=== PATIENT | male | born 1990 | race Caucasian/White ===

== ENCOUNTER 2024-01-28 11:50 | Emergency (ER) | payer BC ==
[~2024-01-28] VITALS: Ht 180.3 cm; Wt 113.5 kg
[~2024-01-28 11:50] MED LIST: NO MEDICATIONS
[2024-01-28 12:19] VITALS: TEMP 99
[2024-01-28 12:38] LABS: BASOPHILS # (AUTO) 0.1 X10'3 (0-0.2); BASOPHILS % (AUTO) 0.8 % (0-1); EOSINOPHILS % (AUTO) 0.3 % (0-6); HEMOGLOBIN 12.7 g/dl (14.0-17.9); LYMPHOCYTES # (AUTO) 0.7 X10'3 (1.1-4.8); LYMPHOCYTES % (AUTO) 10.9 % (21-51); MEAN CORPUSCULAR HEMOGLOBIN 30.4 PG (27.0-31.0); MEAN CORPUSCULAR HGB CONC 34.3 g/dL (33.0-36.5); MEAN CORPUSCULAR VOLUME 88.6 FL (78-98); MEAN PLATELET VOLUME 9.5 FL (7.4-10.4); MONOCYTES # (AUTO) 0.4 X10'3 (0-0.9); MONOCYTES % (AUTO) 7.1 % (2-12); NEUTROPHILS % (AUTO) 80.9 % (42-75); PLATELET COUNT 76 X10'3 (140-440); RED BLOOD COUNT 4.18 X10'6 (4.70-6.10); RED CELL DISTRIBUTION WIDTH 12.7 % (11.5-14.5); WHITE BLOOD COUNT 6.2 X10'3 (4.5-11.0)
[2024-01-28 12:54] LABS: ALANINE AMINOTRANSFERASE 74 U/L (12-78); ALBUMIN 4.3 G/DL (3.4-5.0); ALBUMIN/GLOBULIN RATIO 1.1 (1.1-1.5); ALKALINE PHOSPHATASE 128 IU/L (46-116); ANION GAP 22 (8-16); ASPARTATE AMINO TRANSFERASE 192 U/L (10-37); BILIRUBIN,TOTAL 4.1 MG/DL (0.1-1.0); BLOOD UREA NITROGEN 15 MG/DL (7-18); CALCIUM 9.4 MG/DL (8.5-10.1); CHLORIDE 94 MMOL/L (99-107); GLUCOSE 79 MG/DL (70-104); LIPASE 51 U/L (16-77); SODIUM 139 MMOL/L (135-145); TOTAL CARBON DIOXIDE 23.5 MMOL/L (24-32); TOTAL PROTEIN 8.1 G/DL (6.4-8.2); eCRCL 111 ML/MIN; eGFR 86 ML/MIN
[2024-01-28 13:18] LABS: MAGNESIUM 1.9 MG/DL (1.5-2.4)
[2024-01-28] MEDS: ondansetron/PF 4mg/2ml inj IV ONE (13:24)
[2024-01-28] MEDS ORDERED: morphine 2 MG/ML inj. syringe IV PRN (13:55)
[2024-01-28] MEDS: normal saline 1000ML IV soln IVB ONE (14:31)
[2024-01-28] MEDS ORDERED: PANT20TA2 PO (14:38)
[2024-01-28] MEDS ORDERED: CHLO25CA10 PO (14:38)
[2024-01-28] MEDS: pantoprazole 40 MG vial IV ONE (14:41)
[2024-01-28] MEDS: diazepam inj 5 MG/ML inj. IV ONE (14:41)
[2024-01-28] MEDS: magnesium 2GM in 50ml NS 50 ML IV ONE (14:45)
[2024-01-28] MEDS: potassium Cl 20mEq in D5-NS 1,000 ML IV SCH (14:45)
[2024-01-28] MEDS: haloperidol lactate 5mg/ml inj IM ONE (15:14)
[2024-01-28] MEDS: ringers solution, lacted 1,000 ML IV ONE (15:14)
[2024-01-28 17:08] VITALS: BP 144/84; PULSE 101; RESP 18; O2SAT 95
[2024-01-28] MEDS: chlordiazePOXIDE 25mg capsule PO ONE (17:20)
== END 2024-01-28 17:35 | disposition home or self-care (01) ==
LOC: ER 11:51
DX: E87.6 Hypokalemia (principal); K29.20 Alcoholic gastritis without bleeding; F10.10 Alcohol abuse, uncomplicated; R10.9 Unspecified abdominal pain; R11.10 Vomiting, unspecified; Z88.8 Allergy status to other drugs, medicaments and biological substances; Z79.899 Other long term (current) drug therapy; Y90.9 Presence of alcohol in blood, level not specified
CPT/HCPCS: 36415; 80053; 80320; 83690; 83735; 85025; 93005; 96365; 96366; 96368; 96372; 96375; 99284; C9113; J1630; J2405; J3360; J3475; J3480; J7030; J7120

== ENCOUNTER 2024-10-15 12:34 | Inpatient (IN) | payer OTHER ==
[~2024-10-15] VITALS: Ht 182.9 cm; Wt 117.5 kg
[~2024-10-15 12:34] MED LIST changes: +FOLI1TAB27 PO; +LACT-237 PO; +LACT10SO78 PO; +MIDO2.5T PO; +MULT-25 PO; -NO MEDICATIONS; +PANT40TA54 PO; +PHYT5TAB30 PO; +PRED10TA PO; +PROP10TA10 PO; +RIFA550T PO; +SERT-432 PO; +URSO300C2 PO; +thiamine tablet PO
[2024-10-15] MEDS: octreotide inj. 500 MCG in normal saline 100ml IV soln 97.5 ML IV SCH (14:03)
[2024-10-15] MEDS: octreotide 100mcg/1 ml ampule IV ONE (14:03)
[2024-10-15] MEDS: pantoprazole 40 MG vial IV STA (14:03)
[2024-10-15 14:09] LABS: BASOPHILS % (AUTO) 0.1 % (0-1); EOSINOPHILS # (AUTO) 0.1 X10'3 (0-0.9); EOSINOPHILS % (AUTO) 0.8 % (0-6); HEMATOCRIT 22.5 % (42.0-52.0); HEMOGLOBIN 7.4 g/dl (14.0-17.9); LYMPHOCYTES # (AUTO) 0.3 X10'3 (1.1-4.8); LYMPHOCYTES % (AUTO) 2.6 % (21-51); MEAN CORPUSCULAR HEMOGLOBIN 32.2 PG (27.0-31.0); MEAN CORPUSCULAR HGB CONC 33.1 g/dL (33.0-36.5); MEAN CORPUSCULAR VOLUME 97.3 FL (78-98); MONOCYTES # (AUTO) 2.1 X10'3 (0-0.9); MONOCYTES % (AUTO) 15.7 % (2-12); NEUTROPHILS # (AUTO) 10.7 X10'3 (1.8-7.7); NEUTROPHILS % (AUTO) 80.8 % (42-75); PLATELET COUNT 88 X10'3 (140-440); RED BLOOD COUNT 2.31 X10'6 (4.70-6.10); RED CELL DISTRIBUTION WIDTH 23.9 % (11.5-14.5); WHITE BLOOD COUNT 13.2 X10'3 (4.5-11.0)
[2024-10-15 14:13] LABS: AMMONIA < 10 UMOL/L (11-32)
[2024-10-15 14:14] LABS: LACTIC SEPSIS 2.2 MMOL/L (0.4-2.0)
[2024-10-15 14:17] LABS: INR 2.1 INR; PROTHROMBIN TIME 20.5 SECONDS (9.0-12.0)
[2024-10-15 14:25] LABS: ALANINE AMINOTRANSFERASE 111 U/L (12-78); ALBUMIN 2.8 G/DL (3.4-5.0); ALKALINE PHOSPHATASE 134 IU/L (46-116); ANION GAP 11 (8-16); ASPARTATE AMINO TRANSFERASE 100 U/L (10-37); BILIRUBIN,TOTAL 11.2 MG/DL (0.1-1.0); BLOOD UREA NITROGEN 25 MG/DL (7-18); BUN/CREATININE RATIO 18.1 (10.0-20.0); CALCIUM 8.4 MG/DL (8.5-10.1); CHLORIDE 108 MMOL/L (99-107); CREATININE 1.38 MG/DL (0.60-1.10); GLUCOSE 125 MG/DL (70-104); POTASSIUM 3.7 MMOL/L (3.5-5.1); SODIUM 141 MMOL/L (135-145); TOTAL CARBON DIOXIDE 21.7 MMOL/L (24-32); eCRCL 80 ML/MIN; eGFR 59 ML/MIN
[2024-10-15 14:31] LABS: ETHANOL < 10 MG/DL (<10); LIPASE 83 U/L (16-77); MAGNESIUM 1.5 MG/DL (1.5-2.4); PRO BRAIN NATRIURETIC PEPTIDE 296 PG/ML (0-125)
[2024-10-15 14:32] LABS: ALBUMIN/GLOBULIN RATIO 1.3 (1.1-1.5)
[2024-10-15 15:26] LABS: TOTAL CELLS COUNTED 100
[2024-10-15 15:27] LABS: BURR CELLS 3+; SCHISTOCYTES FEW
[2024-10-15 15:29] LABS: ANISOCYTOSIS 3+; PLATELET ESTIMATE DECREASED
[2024-10-15] MEDS: CefTRIAXone 2gm/D5W 50ml BAG 50 ML IV ONE (16:55)
[2024-10-15] MEDS ORDERED: magnesium sulf-water 2g/50mL 50 ML IV PRN (17:10)
[2024-10-15] MEDS ORDERED: ondansetron/PF 4mg/2ml inj IV PRN (17:10)
[2024-10-15] MEDS ORDERED: magnesium hydroxide 30ml (MOM) UD suspension PO PRN (17:10)
[2024-10-15] MEDS ORDERED: potassium Cl 20 mEq SR tablet PO PRN ×2 (17:10)
[2024-10-15] MEDS ORDERED: acetaminophen 325mg tablet PO PRN (17:10)
[2024-10-15] MEDS ORDERED: potassium Cl 40MEQ/1/2NS 520ml 520 ML IV PRN (17:10)
[2024-10-15] MEDS ORDERED: magnesium sulf-water 4G/100mL 100 ML IV PRN (17:10)
[2024-10-15] MEDS ORDERED: mag hydrox/Alum hydrox/simeth 30ml oral suspension PO PRN (17:10)
[2024-10-15] MEDS ORDERED: cloNIDine 0.1 mg tablet PO PRN (17:55)
[2024-10-15] MEDS ORDERED: LORazepam 2 mg/ml vial IV PRN (17:55)
[2024-10-15] MEDS: phytonadione inj. 3 MG in normal saline 100ml IV soln 100 ML IV ONE (18:34)
[2024-10-15] MEDS: pantoprazole 40MG/NS 100ML BAG 100 ML IV SCH (18:38)
[2024-10-15] MEDS: normal saline 1000ml 1,000 ML IV SCH (18:38)
[2024-10-15 19:24] LABS: MEAN CORPUSCULAR HGB CONC 33.9 g/dL (33.0-36.5); MEAN CORPUSCULAR VOLUME 97.4 FL (78-98); MEAN PLATELET VOLUME 11.2 FL (7.4-10.4); RED BLOOD COUNT 1.94 X10'6 (4.70-6.10); RED CELL DISTRIBUTION WIDTH 23.5 % (11.5-14.5); WHITE BLOOD COUNT 6.8 X10'3 (4.5-11.0)
[2024-10-15 19:28] LABS: HEMATOCRIT 18.9 % (42.0-52.0); HEMOGLOBIN 6.4 g/dl (14.0-17.9); PLATELET COUNT 48 X10'3 (140-440)
[2024-10-15] MEDS: K and/or MAG REPLACEMENT MC SCH (20:00)
[2024-10-15] MEDS: docusate sod 100mg capsule PO SCH (20:00)
[2024-10-15 21:00] VITALS: BP 113/62; PULSE 84; RESP 14; RESP 16; TEMP 97.8; O2SAT 96; O2SAT 97
[2024-10-15] MEDS: thiamine 100mg/ml 2ml inj. IV SCH (21:00)
[2024-10-15 21:01] VITALS: RESP 16; O2SAT 96
[2024-10-15 22:00] VITALS: BP 109/45; PULSE 75; RESP 16; TEMP 97.9; O2SAT 98
[2024-10-15 22:07] VITALS: BP 109/51; PULSE 77; RESP 18; TEMP 97.6
[2024-10-15 22:29] VITALS: BP 111/49; PULSE 75; RESP 15; RESP 17; TEMP 98.4; TEMP 98.5
[2024-10-15] MEDS: LORazepam 1 MG tablet PO PRN (22:54)
[2024-10-15 23:29] VITALS: BP 109/45; PULSE 75; RESP 16; TEMP 97.9
[2024-10-16] VITALS (17 sets, daily range): BP systolic 99–123; BP diastolic 53–66; PULSE 69–76; RESP 12–16; TEMP 97.3–98.5; O2SAT 91–97
[2024-10-16 07:42] LABS: BASOPHILS % (AUTO) 0.6 % (0-1); EOSINOPHILS # (AUTO) 0.4 X10'3 (0-0.9); EOSINOPHILS % (AUTO) 5.6 % (0-6); HEMATOCRIT 22.8 % (42.0-52.0); HEMOGLOBIN 7.5 g/dl (14.0-17.9); LYMPHOCYTES % (AUTO) 15.3 % (21-51); MEAN CORPUSCULAR HEMOGLOBIN 32.2 PG (27.0-31.0); MEAN CORPUSCULAR HGB CONC 32.7 g/dL (33.0-36.5); MEAN CORPUSCULAR VOLUME 98.3 FL (78-98); MEAN PLATELET VOLUME 10.3 FL (7.4-10.4); MONOCYTES # (AUTO) 0.4 X10'3 (0-0.9); MONOCYTES % (AUTO) 6.6 % (2-12); NEUTROPHILS # (AUTO) 4.8 X10'3 (1.8-7.7); NEUTROPHILS % (AUTO) 71.9 % (42-75); PLATELET COUNT 61 X10'3 (140-440); RED BLOOD COUNT 2.32 X10'6 (4.70-6.10); RED CELL DISTRIBUTION WIDTH 24.2 % (11.5-14.5); WHITE BLOOD COUNT 6.6 X10'3 (4.5-11.0)
[2024-10-16 07:48] LABS: ALANINE AMINOTRANSFERASE 104 U/L (12-78); ALBUMIN 2.4 G/DL (3.4-5.0); ALBUMIN/GLOBULIN RATIO 1.1 (1.1-1.5); ALKALINE PHOSPHATASE 116 IU/L (46-116); ANION GAP 12 (8-16); ASPARTATE AMINO TRANSFERASE 136 U/L (10-37); BLOOD UREA NITROGEN 23 MG/DL (7-18); BUN/CREATININE RATIO 19.7 (10.0-20.0); CALCIUM 7.6 MG/DL (8.5-10.1); CHLORIDE 111 MMOL/L (99-107); CREATININE 1.17 MG/DL (0.60-1.10); GLUCOSE 93 MG/DL (70-104); MAGNESIUM 1.3 MG/DL (1.5-2.4); POTASSIUM 3.8 MMOL/L (3.5-5.1); SODIUM 142 MMOL/L (135-145); TOTAL CARBON DIOXIDE 19.5 MMOL/L (24-32); TOTAL PROTEIN 4.5 G/DL (6.4-8.2); eCRCL 97 ML/MIN; eGFR 71 ML/MIN
[2024-10-16] MEDS: multivitamins, therapeutics tablet PO SCH (08:33)
[2024-10-16] MEDS: prednisone 10mg tablet PO SCH (08:34)
[2024-10-16] MEDS: folic acid 1mg/0.2ml inj IV SCH (08:35)
[2024-10-16] MEDS ORDERED: fentaNYL/PF 50MCG/1 ML 2ML syringe ONE (14:42)
[2024-10-16] MEDS ORDERED: LIDOcaine 2% Viscous 15ml cup ONE (14:43)
[2024-10-16] MEDS ORDERED: epiNEPHrine 0.1mg/ml 10ml syringe ONE (14:43)
[2024-10-16] MEDS ORDERED: MIDAZolam 1 MG/ML 5ML VIAL ONE (14:43)
[2024-10-16] MEDS ORDERED: simethicone 40mg/0.6ml oral drops 30ml ONE (15:20)
[2024-10-16 18:35] LABS: HEMATOCRIT 22.9 % (42.0-52.0); HEMOGLOBIN 7.7 g/dl (14.0-17.9); MEAN CORPUSCULAR HEMOGLOBIN 32.3 PG (27.0-31.0); MEAN CORPUSCULAR HGB CONC 33.8 g/dL (33.0-36.5); MEAN CORPUSCULAR VOLUME 95.6 FL (78-98); MEAN PLATELET VOLUME 10.7 FL (7.4-10.4); PLATELET COUNT 70 X10'3 (140-440); RED BLOOD COUNT 2.39 X10'6 (4.70-6.10); RED CELL DISTRIBUTION WIDTH 23.5 % (11.5-14.5); WHITE BLOOD COUNT 7.4 X10'3 (4.5-11.0)
[2024-10-16] MEDS: CefTRIAXone/D5W-Rocephin 1gm 50 ML IV SCH (19:33)
[2024-10-16] MEDS: magnesium Cl slow-release 64mg tablet PO PRN (19:39)
[2024-10-17] VITALS (8 sets, daily range): BP systolic 108–141; BP diastolic 49–81; PULSE 71–89; RESP 12–21; TEMP 97.6–98.3; O2SAT 93–97
[2024-10-17 06:49] LABS: ALANINE AMINOTRANSFERASE 104 U/L (12-78); ALBUMIN 2.3 G/DL (3.4-5.0); ALKALINE PHOSPHATASE 105 IU/L (46-116); ANION GAP 8 (8-16); ASPARTATE AMINO TRANSFERASE 115 U/L (10-37); BILIRUBIN,TOTAL 11.6 MG/DL (0.1-1.0); BLOOD UREA NITROGEN 25 MG/DL (7-18); BUN/CREATININE RATIO 22.9 (10.0-20.0); CALCIUM 8.2 MG/DL (8.5-10.1); CHLORIDE 112 MMOL/L (99-107); CREATININE 1.09 MG/DL (0.60-1.10); GLUCOSE 118 MG/DL (70-104); MAGNESIUM 1.5 MG/DL (1.5-2.4); SODIUM 143 MMOL/L (135-145); TOTAL CARBON DIOXIDE 22.7 MMOL/L (24-32); eCRCL 104 ML/MIN; eGFR 77 ML/MIN
[2024-10-17 06:50] LABS: ALBUMIN/GLOBULIN RATIO 1.2 (1.1-1.5); POTASSIUM 4.3 MMOL/L (3.5-5.1); TOTAL PROTEIN 4.3 G/DL (6.4-8.2)
[2024-10-17 07:19] LABS: BASOPHILS % (AUTO) 0.3 % (0-1); EOSINOPHILS % (AUTO) 0.4 % (0-6); HEMOGLOBIN 7.2 g/dl (14.0-17.9); LYMPHOCYTES # (AUTO) 0.5 X10'3 (1.1-4.8); LYMPHOCYTES % (AUTO) 6.5 % (21-51); MEAN CORPUSCULAR HEMOGLOBIN 32.3 PG (27.0-31.0); MEAN CORPUSCULAR HGB CONC 34.1 g/dL (33.0-36.5); MEAN CORPUSCULAR VOLUME 94.9 FL (78-98); MEAN PLATELET VOLUME 10.6 FL (7.4-10.4); MONOCYTES # (AUTO) 0.5 X10'3 (0-0.9); MONOCYTES % (AUTO) 6.6 % (2-12); NEUTROPHILS # (AUTO) 6.8 X10'3 (1.8-7.7); NEUTROPHILS % (AUTO) 86.2 % (42-75); PLATELET COUNT 68 X10'3 (140-440); RED BLOOD COUNT 2.24 X10'6 (4.70-6.10); RED CELL DISTRIBUTION WIDTH 23.6 % (11.5-14.5); WHITE BLOOD COUNT 7.9 X10'3 (4.5-11.0)
[2024-10-17 07:46] LABS: HEMATOCRIT 21.2 % (42.0-52.0)
[2024-10-17 09:44] LABS: INR 2.1 INR; PROTHROMBIN TIME 21.1 SECONDS (9.0-12.0)
[2024-10-17 17:27] LABS: BASOPHILS % (AUTO) 0.1 % (0-1); EOSINOPHILS % (AUTO) 0.1 % (0-6); HEMATOCRIT 24.6 % (42.0-52.0); HEMOGLOBIN 8.5 g/dl (14.0-17.9); LYMPHOCYTES # (AUTO) 0.3 X10'3 (1.1-4.8); LYMPHOCYTES % (AUTO) 3.1 % (21-51); MEAN CORPUSCULAR HEMOGLOBIN 32.1 PG (27.0-31.0); MEAN CORPUSCULAR HGB CONC 34.4 g/dL (33.0-36.5); MEAN CORPUSCULAR VOLUME 93.4 FL (78-98); MEAN PLATELET VOLUME 9.9 FL (7.4-10.4); MONOCYTES # (AUTO) 0.5 X10'3 (0-0.9); MONOCYTES % (AUTO) 4.5 % (2-12); NEUTROPHILS % (AUTO) 92.2 % (42-75); PLATELET COUNT 74 X10'3 (140-440); RED BLOOD COUNT 2.64 X10'6 (4.70-6.10); WHITE BLOOD COUNT 10.8 X10'3 (4.5-11.0)
[2024-10-18] VITALS (11 sets, daily range): BP systolic 114–128; BP diastolic 60–73; PULSE 74–95; RESP 10–19; TEMP 97.4–97.9; O2SAT 95–97
[2024-10-18] MEDS: morphine 2 MG/ML inj. syringe IV PRN ×2 (01:50→10:55)
[2024-10-18 06:44] LABS: BASOPHILS % (AUTO) 0.2 % (0-1); EOSINOPHILS # (AUTO) 0.1 X10'3 (0-0.9); EOSINOPHILS % (AUTO) 1.3 % (0-6); HEMOGLOBIN 7.5 g/dl (14.0-17.9); LYMPHOCYTES # (AUTO) 0.7 X10'3 (1.1-4.8); LYMPHOCYTES % (AUTO) 8.7 % (21-51); MEAN CORPUSCULAR HEMOGLOBIN 31.9 PG (27.0-31.0); MEAN CORPUSCULAR HGB CONC 34.4 g/dL (33.0-36.5); MEAN CORPUSCULAR VOLUME 92.8 FL (78-98); MEAN PLATELET VOLUME 10.2 FL (7.4-10.4); MONOCYTES # (AUTO) 0.5 X10'3 (0-0.9); MONOCYTES % (AUTO) 6.1 % (2-12); NEUTROPHILS # (AUTO) 6.3 X10'3 (1.8-7.7); NEUTROPHILS % (AUTO) 83.7 % (42-75); PLATELET COUNT 59 X10'3 (140-440); RED BLOOD COUNT 2.34 X10'6 (4.70-6.10); RED CELL DISTRIBUTION WIDTH 23.6 % (11.5-14.5); WHITE BLOOD COUNT 7.5 X10'3 (4.5-11.0)
[2024-10-18 07:13] LABS: ALANINE AMINOTRANSFERASE 85 U/L (12-78); ALBUMIN 2.2 G/DL (3.4-5.0); ALKALINE PHOSPHATASE 115 IU/L (46-116); ANION GAP 7 (8-16); ASPARTATE AMINO TRANSFERASE 76 U/L (10-37); BILIRUBIN,TOTAL 10.7 MG/DL (0.1-1.0); BLOOD UREA NITROGEN 24 MG/DL (7-18); BUN/CREATININE RATIO 21.6 (10.0-20.0); CALCIUM 7.6 MG/DL (8.5-10.1); CHLORIDE 114 MMOL/L (99-107); CREATININE 1.11 MG/DL (0.60-1.10); GLUCOSE 121 MG/DL (70-104); MAGNESIUM 1.4 MG/DL (1.5-2.4); SODIUM 142 MMOL/L (135-145); TOTAL CARBON DIOXIDE 21.1 MMOL/L (24-32); eCRCL 102 ML/MIN; eGFR 75 ML/MIN
[2024-10-18 07:21] LABS: POTASSIUM 4.1 MMOL/L (3.5-5.1); TOTAL PROTEIN 4.3 G/DL (6.4-8.2)
[2024-10-18] MEDS: furosemide 40mg tablet PO SCH (07:26)
[2024-10-18] MEDS: spironolactone 50 MG tablet PO SCH (07:27)
[2024-10-18 07:31] LABS: HEMATOCRIT 21.7 % (42.0-52.0)
[2024-10-18 07:32] LABS: ANISOCYTOSIS 3+; BURR CELLS 1+; LARGE PLATELETS FEW; PLATELET ESTIMATE DECREASED; POIKILOCYTOSIS FEW
[2024-10-18] MEDS ORDERED: SPIR50TA5 PO (10:48)
[2024-10-18] MEDS ORDERED: FURO40TA4 PO (10:48)
[2024-10-18] MEDS: lactulose 20gm/30ml cup PO SCH (16:00)
[2024-10-18 20:35] LABS: HEMATOCRIT 27.5 % (42.0-52.0); HEMOGLOBIN 9.3 g/dl (14.0-17.9); MEAN CORPUSCULAR HGB CONC 33.8 g/dL (33.0-36.5); MEAN CORPUSCULAR VOLUME 94.6 FL (78-98); MEAN PLATELET VOLUME 11.1 FL (7.4-10.4); PLATELET COUNT 66 X10'3 (140-440); RED BLOOD COUNT 2.91 X10'6 (4.70-6.10); RED CELL DISTRIBUTION WIDTH 22.5 % (11.5-14.5); WHITE BLOOD COUNT 9.2 X10'3 (4.5-11.0)
[2024-10-18] MEDS ORDERED: LORazepam 2 mg/ml vial IM ONE (22:25)
[2024-10-18] MEDS: LORazepam 2 mg/ml vial IV ONE (23:27)
[2024-10-19 02:00] VITALS: BP 117/66; PULSE 72; RESP 14; TEMP 97.6; O2SAT 97
[2024-10-19 06:00] VITALS: BP 113/69; PULSE 76; RESP 14; TEMP 97.3; O2SAT 97
[2024-10-19 06:42] LABS: BASOPHILS # (AUTO) 0.1 X10'3 (0-0.2); BASOPHILS % (AUTO) 1.7 % (0-1); EOSINOPHILS # (AUTO) 0.1 X10'3 (0-0.9); EOSINOPHILS % (AUTO) 0.7 % (0-6); HEMATOCRIT 24.4 % (42.0-52.0); HEMOGLOBIN 8.3 g/dl (14.0-17.9); LYMPHOCYTES # (AUTO) 0.5 X10'3 (1.1-4.8); MEAN CORPUSCULAR HEMOGLOBIN 31.9 PG (27.0-31.0); MEAN CORPUSCULAR VOLUME 93.8 FL (78-98); MEAN PLATELET VOLUME 10.1 FL (7.4-10.4); MONOCYTES # (AUTO) 0.6 X10'3 (0-0.9); MONOCYTES % (AUTO) 6.6 % (2-12); NEUTROPHILS # (AUTO) 7.4 X10'3 (1.8-7.7); PLATELET COUNT 60 X10'3 (140-440); RED CELL DISTRIBUTION WIDTH 22.7 % (11.5-14.5); WHITE BLOOD COUNT 8.7 X10'3 (4.5-11.0)
[2024-10-19 06:58] LABS: ALANINE AMINOTRANSFERASE 79 U/L (12-78); ALBUMIN 2.3 G/DL (3.4-5.0); ALKALINE PHOSPHATASE 123 IU/L (46-116); ANION GAP 9 (8-16); ASPARTATE AMINO TRANSFERASE 65 U/L (10-37); BILIRUBIN,TOTAL 9.8 MG/DL (0.1-1.0); BLOOD UREA NITROGEN 21 MG/DL (7-18); BUN/CREATININE RATIO 19.8 (10.0-20.0); CALCIUM 7.9 MG/DL (8.5-10.1); CHLORIDE 113 MMOL/L (99-107); CREATININE 1.06 MG/DL (0.60-1.10); GLUCOSE 118 MG/DL (70-104); MAGNESIUM 1.3 MG/DL (1.5-2.4); SODIUM 142 MMOL/L (135-145); TOTAL CARBON DIOXIDE 20.4 MMOL/L (24-32); eCRCL 107 ML/MIN; eGFR 80 ML/MIN
[2024-10-19 07:08] LABS: ALBUMIN/GLOBULIN RATIO 1.1 (1.1-1.5); TOTAL PROTEIN 4.4 G/DL (6.4-8.2)
[2024-10-19 07:14] LABS: ANISOCYTOSIS 3+; BURR CELLS 2+; PLATELET ESTIMATE DECREASED
[2024-10-19] MEDS ORDERED: potassium Cl 20 mEq SR tablet PO PRN ×2 (07:30)
[2024-10-19] MEDS ORDERED: potassium Cl 40MEQ/1/2NS 520ml 520 ML IV PRN (07:30)
[2024-10-19] MEDS ORDERED: magnesium sulf-water 2g/50mL 50 ML IV PRN (07:30)
[2024-10-19] MEDS ORDERED: magnesium sulf-water 4G/100mL 100 ML IV PRN (07:30)
[2024-10-19] MEDS: magnesium Cl slow-release 64mg tablet PO PRN (07:46)
[2024-10-19] MEDS: thiamine 100mg tablet PO SCH (07:47)
[2024-10-19 08:00] VITALS: RESP 14; O2SAT 97
[2024-10-19] MEDS: K and/or MAG REPLACEMENT MC SCH (08:00)
[2024-10-19] MEDS ORDERED: prednisone 10mg tablet PO SCH (08:30)
[2024-10-19] MEDS ORDERED: LEVO750T68 PO (09:10)
[2024-10-19 11:00] VITALS: BP 116/68; PULSE 76; RESP 22; TEMP 98.3; O2SAT 96
[2024-10-20] MEDS ORDERED: folic acid 1mg tablet PO SCH (08:00)
== END 2024-10-19 14:55 | disposition home or self-care (01) | DRG 432 ==
LOC: ER 12:34 → ED HOLD 16:18 → EDBEDREQ 20:22 → PCU 3S 20:46
PROVIDERS: ADMIT Internal Medicine; ATTEND Internal Medicine
PROC: 30233N1 Transfusion of Nonautologous Red Blood Cells into Peripheral Vein, Percutaneous Approach (ICD-10-PCS; 2024-10-15)
PROC: 06L38CZ Occlusion of Esophageal Vein with Extraluminal Device, Via Natural or Artificial Opening Endoscopic (ICD-10-PCS; principal; 2024-10-16)
PROC: 30233R1 Transfusion of Nonautologous Platelets into Peripheral Vein, Percutaneous Approach (ICD-10-PCS; 2024-10-16)
DX: K74.60 Unspecified cirrhosis of liver (principal); I85.11 Secondary esophageal varices with bleeding; K76.6 Portal hypertension; D62 Acute posthemorrhagic anemia; K70.11 Alcoholic hepatitis with ascites; F10.20 Alcohol dependence, uncomplicated; Z79.899 Other long term (current) drug therapy; Z87.11 Personal history of peptic ulcer disease; Z88.2 Allergy status to sulfonamides
CPT/HCPCS: 36415; 36430; 43244; 76705; 80053; 80320; 82140; 83605; 83690; 83735; 83880; 84145; 84484; 85007; 85008; 85025; 85027; 85610; 86885; 86900; 86901; 86920; 87081; 96365; 96375; 96376; 97110; 97116; 99152; 99285; A4620; A6213; A6449; G0378; J0171; J0696; J2060; J2250; J2270; J2354; J2470; J3010; J3411; J3430; J3490; J7030; J7040; J7512; P9016; P9035

== ENCOUNTER 2024-11-01 07:43 | Emergency (ER) | payer OTHER ==
[~2024-11-01] VITALS: Ht 182.9 cm; Wt 118.2 kg
[~2024-11-01 07:43] MED LIST changes: +FURO40TA4 PO; +SPIR50TA5 PO
[2024-11-01 07:50] VITALS: TEMP 96.4
[2024-11-01 09:55] LABS: BASOPHILS % (AUTO) 0.2 % (0-1); EOSINOPHILS # (AUTO) 0.1 X10'3 (0-0.9); EOSINOPHILS % (AUTO) 0.6 % (0-6); HEMATOCRIT 29.6 % (42.0-52.0); LYMPHOCYTES # (AUTO) 1.3 X10'3 (1.1-4.8); LYMPHOCYTES % (AUTO) 7.2 % (21-51); MEAN CORPUSCULAR HEMOGLOBIN 32.4 PG (27.0-31.0); MEAN CORPUSCULAR HGB CONC 33.7 g/dL (33.0-36.5); MEAN CORPUSCULAR VOLUME 96.2 FL (78-98); MEAN PLATELET VOLUME 10.4 FL (7.4-10.4); MONOCYTES # (AUTO) 1.4 X10'3 (0-0.9); MONOCYTES % (AUTO) 7.9 % (2-12); NEUTROPHILS # (AUTO) 14.8 X10'3 (1.8-7.7); NEUTROPHILS % (AUTO) 84.1 % (42-75); PLATELET COUNT 89 X10'3 (140-440); RED BLOOD COUNT 3.08 X10'6 (4.70-6.10); RED CELL DISTRIBUTION WIDTH 20.6 % (11.5-14.5); WHITE BLOOD COUNT 17.6 X10'3 (4.5-11.0)
[2024-11-01 10:11] LABS: ALANINE AMINOTRANSFERASE 70 U/L (12-78); ALBUMIN 2.8 G/DL (3.4-5.0); ALKALINE PHOSPHATASE 164 IU/L (46-116); ANION GAP 6 (8-16); ASPARTATE AMINO TRANSFERASE 66 U/L (10-37); BILIRUBIN,TOTAL 9.6 MG/DL (0.1-1.0); BLOOD UREA NITROGEN 32 MG/DL (7-18); CALCIUM 8.1 MG/DL (8.5-10.1); CHLORIDE 105 MMOL/L (99-107); CREATININE 1.23 MG/DL (0.60-1.10); GLUCOSE 99 MG/DL (70-104); POTASSIUM 3.2 MMOL/L (3.5-5.1); SODIUM 138 MMOL/L (135-145); eCRCL 92 ML/MIN; eGFR 67 ML/MIN
[2024-11-01 10:17] LABS: PLATELET ESTIMATE DECREASED
[2024-11-01 10:19] LABS: ACANTHOCYTES 1+; ANISOCYTOSIS 3+; BURR CELLS 2+
[2024-11-01 10:20] LABS: SCHISTOCYTES FEW; TOTAL PROTEIN 5.7 G/DL (6.4-8.2)
[2024-11-01 11:53] LABS: PROTHROMBIN TIME 20.1 SECONDS (9.0-12.0)
[2024-11-01 12:15] LABS: LACTIC SEPSIS 1.8 MMOL/L (0.4-2.0)
[2024-11-01 12:20] LABS: AMMONIA < 10 UMOL/L (11-32)
[2024-11-01 13:27] VITALS: O2SAT 99
[2024-11-01 14:03] LABS: BILIRUBIN,URINE MODERATE (Neg); CLARITY,URINE CLEAR (Clear); COLOR,URINE AMBER (Yellow); GLUCOSE, URINE NEGATIVE (Neg); KETONES,URINE NEGATIVE (Neg); LEUKOCYTE ESTERASE ,URINE NEGATIVE (Neg); NITRITES, URINE NEGATIVE (Neg); OCCULT BLOOD,URINE NEGATIVE (Neg); PROTEIN,URINE TRACE mg/dl (Neg); UROBILINOGEN,URINE 0.2 E.U/dL (0.2-1.0)
[2024-11-01 14:09] LABS: UA COLLECTION TYPE CLN CATCH MIDSTREAM
[2024-11-01 14:10] LABS: BACTERIA,URINE NONE SEEN /HPF (Neg); FINE GRANULAR CAST 0-3 /LPF (NEGATIVE); MUCUS STRANDS NONE SEEN /LPF (Neg); RBC,URINE 0-2 /HPF (0-2); SQUAMOUS EPITHELIAL CELL,UR FEW /LPF (FEW); TRANSITIONAL EPI CELLS,URINE FEW /HPF; WBC,URINE NONE SEEN /HPF (0-4)
[2024-11-01 14:52] VITALS: BP 104/65; PULSE 74; RESP 16
== END 2024-11-01 14:30 | disposition home or self-care (01) ==
LOC: ER 07:44
DX: Z46.82 Encounter for fitting and adjustment of non-vascular catheter (principal); F12.90 Cannabis use, unspecified, uncomplicated; Z88.2 Allergy status to sulfonamides; Z79.899 Other long term (current) drug therapy; K76.6 Portal hypertension; Z99.2 Dependence on renal dialysis
CPT/HCPCS: 36415; 80053; 80320; 81001; 82140; 83605; 85008; 85025; 85610; 87040; 99283

== ENCOUNTER 2024-11-17 08:56 | Inpatient (IN) | payer BC, OTHER ==
[~2024-11-17] VITALS: Ht 182.9 cm; Wt 125.0 kg
[2024-11-17 09:51] LABS: BASOPHILS # (AUTO) 0.1 X10'3 (0-0.2); BASOPHILS % (AUTO) 0.6 % (0-1); EOSINOPHILS # (AUTO) 0.3 X10'3 (0-0.9); EOSINOPHILS % (AUTO) 1.9 % (0-6); HEMATOCRIT 25.1 % (42.0-52.0); HEMOGLOBIN 8.5 g/dl (14.0-17.9); LYMPHOCYTES # (AUTO) 2.3 X10'3 (1.1-4.8); LYMPHOCYTES % (AUTO) 14.1 % (21-51); MEAN CORPUSCULAR HEMOGLOBIN 33.2 PG (27.0-31.0); MEAN CORPUSCULAR HGB CONC 33.8 g/dL (33.0-36.5); MEAN CORPUSCULAR VOLUME 98.3 FL (78-98); MEAN PLATELET VOLUME 10.5 FL (7.4-10.4); MONOCYTES # (AUTO) 1.6 X10'3 (0-0.9); MONOCYTES % (AUTO) 9.8 % (2-12); NEUTROPHILS % (AUTO) 73.6 % (42-75); PLATELET COUNT 116 X10'3 (140-440); RED BLOOD COUNT 2.55 X10'6 (4.70-6.10); RED CELL DISTRIBUTION WIDTH 17.7 % (11.5-14.5); WHITE BLOOD COUNT 16.3 X10'3 (4.5-11.0)
[2024-11-17 09:56] LABS: ALANINE AMINOTRANSFERASE 56 U/L (12-78); ALBUMIN 2.2 G/DL (3.4-5.0); ALKALINE PHOSPHATASE 246 IU/L (46-116); ANION GAP 9 (8-16); ASPARTATE AMINO TRANSFERASE 103 U/L (10-37); BILIRUBIN,TOTAL 12.5 MG/DL (0.1-1.0); BLOOD UREA NITROGEN 30 MG/DL (7-18); BUN/CREATININE RATIO 22.7 (10.0-20.0); CALCIUM 7.9 MG/DL (8.5-10.1); CHLORIDE 102 MMOL/L (99-107); CREATININE 1.32 MG/DL (0.60-1.10); GLUCOSE 100 MG/DL (70-104); LIPASE 77 U/L (16-77); POTASSIUM 3.8 MMOL/L (3.5-5.1); SODIUM 138 MMOL/L (135-145); TOTAL CARBON DIOXIDE 26.7 MMOL/L (24-32); eCRCL 86 ML/MIN; eGFR 62 ML/MIN
[2024-11-17 09:57] LABS: ALBUMIN/GLOBULIN RATIO 0.8 (1.1-1.5); TOTAL PROTEIN 4.8 G/DL (6.4-8.2)
[2024-11-17 10:17] LABS: ANISOCYTOSIS 1+; BURR CELLS 1+; PLATELET ESTIMATE DECREASED
[2024-11-17 10:18] LABS: ACANTHOCYTES 1+
[2024-11-17 10:19] LABS: SCHISTOCYTES FEW
[2024-11-17 13:04] LABS: BILIRUBIN,URINE LARGE (Neg); CLARITY,URINE CLEAR (Clear); COLOR,URINE AMBER (Yellow); GLUCOSE, URINE 100 mg/dl (Neg); KETONES,URINE TRACE mg/dl (Neg); LEUKOCYTE ESTERASE ,URINE NEGATIVE (Neg); NITRITES, URINE NEGATIVE (Neg); OCCULT BLOOD,URINE NEGATIVE (Neg); PROTEIN,URINE TRACE mg/dl (Neg)
[2024-11-17 13:08] LABS: UA COLLECTION TYPE CLN CATCH MIDSTREAM
[2024-11-17 13:32] LABS: RBC,URINE 0-2 /HPF (0-2); WBC,URINE 0-4 /HPF (0-4)
[2024-11-17 13:33] LABS: BACTERIA,URINE FEW /HPF (Neg); SQUAMOUS EPITHELIAL CELL,UR FEW /LPF (FEW); STARCH,URINE MODERATE /HPF (NEGATIVE); TRANSITIONAL EPI CELLS,URINE FEW /HPF
[2024-11-17] MEDS: CefTRIAXone 2gm/D5W 50ml BAG 50 ML IV ONE (13:48)
[2024-11-17 14:08] LABS: INR 2.3 INR; PROTHROMBIN TIME 22.9 SECONDS (9.0-12.0)
[2024-11-17] MEDS ORDERED: morphine 2 MG/ML inj. syringe IV PRN ×2 (15:50)
[2024-11-17] MEDS ORDERED: mag hydrox/Alum hydrox/simeth 30ml oral suspension PO PRN (15:50)
[2024-11-17] MEDS ORDERED: potassium Cl 40MEQ/1/2NS 520ml 520 ML IV PRN (15:50)
[2024-11-17] MEDS ORDERED: potassium Cl 20 mEq SR tablet PO PRN (15:50)
[2024-11-17] MEDS ORDERED: magnesium sulf-water 4G/100mL 100 ML IV PRN (15:50)
[2024-11-17] MEDS ORDERED: magnesium hydroxide 30ml (MOM) UD suspension PO PRN (15:50)
[2024-11-17] MEDS ORDERED: ondansetron/PF 4mg/2ml inj IV PRN (15:50)
[2024-11-17] MEDS: octreotide inj. 500 MCG in normal saline 100ml IV soln 97.5 ML IV SCH (16:40)
[2024-11-17] MEDS: pantoprazole 40MG/NS 100ML BAG 100 ML IV SCH (19:43)
[2024-11-17] MEDS: K and/or MAG REPLACEMENT MC SCH (20:00)
[2024-11-17] MEDS: lactulose 20gm/30ml cup PO SCH (20:00)
[2024-11-17] MEDS: docusate sod 100mg capsule PO SCH (20:00)
[2024-11-17] MEDS: furosemide 20 MG/2 ML vial IV SCH (20:15)
[2024-11-17] MEDS: rifaximin 550mg tablet PO SCH (20:25)
[2024-11-17] MEDS: LORazepam 1 MG tablet PO ONE (23:11)
[2024-11-17] MEDS: piperacillin/tazo 3.375gm/50ml 50 ML IV SCH (23:13)
[2024-11-18] VITALS (11 sets, daily range): BP systolic 113–124; BP diastolic 58–67; PULSE 73–83; RESP 14–18; TEMP 97.3–98.6; O2SAT 92–97
[2024-11-18 08:14] LABS: BASOPHILS % (AUTO) 0.3 % (0-1); EOSINOPHILS # (AUTO) 0.2 X10'3 (0-0.9); HEMOGLOBIN 7.2 g/dl (14.0-17.9); LYMPHOCYTES # (AUTO) 1.5 X10'3 (1.1-4.8); LYMPHOCYTES % (AUTO) 14.9 % (21-51); MEAN CORPUSCULAR HEMOGLOBIN 33.6 PG (27.0-31.0); MEAN CORPUSCULAR HGB CONC 33.8 g/dL (33.0-36.5); MEAN CORPUSCULAR VOLUME 99.4 FL (78-98); MEAN PLATELET VOLUME 9.9 FL (7.4-10.4); MONOCYTES # (AUTO) 0.9 X10'3 (0-0.9); MONOCYTES % (AUTO) 8.9 % (2-12); NEUTROPHILS # (AUTO) 7.3 X10'3 (1.8-7.7); NEUTROPHILS % (AUTO) 73.9 % (42-75); PLATELET COUNT 72 X10'3 (140-440); RED BLOOD COUNT 2.15 X10'6 (4.70-6.10); RED CELL DISTRIBUTION WIDTH 16.7 % (11.5-14.5); WHITE BLOOD COUNT 9.9 X10'3 (4.5-11.0)
[2024-11-18 08:44] LABS: ALANINE AMINOTRANSFERASE 54 U/L (12-78); ALBUMIN 1.8 G/DL (3.4-5.0); ALKALINE PHOSPHATASE 172 IU/L (46-116); ANION GAP 6 (8-16); BILIRUBIN,TOTAL 15.4 MG/DL (0.1-1.0); BLOOD UREA NITROGEN 29 MG/DL (7-18); CALCIUM 7.9 MG/DL (8.5-10.1); CHLORIDE 103 MMOL/L (99-107); MAGNESIUM 1.4 MG/DL (1.5-2.4); POTASSIUM 3.5 MMOL/L (3.5-5.1); SODIUM 134 MMOL/L (135-145); TOTAL CARBON DIOXIDE 24.9 MMOL/L (24-32)
[2024-11-18 08:45] LABS: ALBUMIN/GLOBULIN RATIO 0.8 (1.1-1.5); ASPARTATE AMINO TRANSFERASE 102 U/L (10-37); BUN/CREATININE RATIO 21.8 (10.0-20.0); CREATININE 1.33 MG/DL (0.60-1.10); GLUCOSE 93 MG/DL (70-104); TOTAL PROTEIN 4.1 G/DL (6.4-8.2); eCRCL 85 ML/MIN; eGFR 61 ML/MIN
[2024-11-18] MEDS ORDERED: FLUO-331 PO (08:47)
[2024-11-18 08:48] LABS: HEMATOCRIT 21.4 % (42.0-52.0)
[2024-11-18] MEDS: magnesium Cl slow-release 64mg tablet PO PRN (09:57)
[2024-11-18] MEDS: lactose-reduced food (Ensure Enlive) - 237ml bottle PO SCH (13:00)
[2024-11-18] MEDS: PEG 3350/Na sulf,bicarb,Cl/KCl oral sol 4 liter bottle PO ONE (13:10)
[2024-11-18] MEDS: midodrine 5mg tablet PO SCH (13:11)
[2024-11-18] MEDS: FLUoxetine 10mg capsule PO ONE (14:32)
[2024-11-18] MEDS: Ursodiol 300mg capsule PO SCH (20:09)
[2024-11-18] MEDS: lactulose 20gm/30ml cup PO SCH (20:09)
[2024-11-18] MEDS: propranolol 10mg tablet PO SCH (20:10)
[2024-11-18 20:42] LABS: HEMATOCRIT 24.2 % (42.0-52.0); HEMOGLOBIN 8.2 g/dl (14.0-17.9); MEAN CORPUSCULAR HEMOGLOBIN 32.8 PG (27.0-31.0); MEAN CORPUSCULAR VOLUME 96.5 FL (78-98); MEAN PLATELET VOLUME 9.6 FL (7.4-10.4); PLATELET COUNT 76 X10'3 (140-440); RED CELL DISTRIBUTION WIDTH 18.7 % (11.5-14.5)
[2024-11-19] VITALS (17 sets, daily range): BP systolic 100–126; BP diastolic 49–64; PULSE 66–85; RESP 14–20; TEMP 98–99.5; O2SAT 92–98
[2024-11-19 05:26] LABS: BASOPHILS # (AUTO) 0.1 X10'3 (0-0.2); BASOPHILS % (AUTO) 0.7 % (0-1); EOSINOPHILS # (AUTO) 0.2 X10'3 (0-0.9); EOSINOPHILS % (AUTO) 1.6 % (0-6); HEMATOCRIT 23.4 % (42.0-52.0); HEMOGLOBIN 8.1 g/dl (14.0-17.9); LYMPHOCYTES # (AUTO) 1.4 X10'3 (1.1-4.8); LYMPHOCYTES % (AUTO) 12.3 % (21-51); MEAN CORPUSCULAR HEMOGLOBIN 33.3 PG (27.0-31.0); MEAN CORPUSCULAR HGB CONC 34.5 g/dL (33.0-36.5); MEAN CORPUSCULAR VOLUME 96.4 FL (78-98); MEAN PLATELET VOLUME 9.4 FL (7.4-10.4); MONOCYTES % (AUTO) 8.4 % (2-12); NEUTROPHILS # (AUTO) 8.9 X10'3 (1.8-7.7); PLATELET COUNT 76 X10'3 (140-440); RED BLOOD COUNT 2.42 X10'6 (4.70-6.10); RED CELL DISTRIBUTION WIDTH 18.6 % (11.5-14.5); WHITE BLOOD COUNT 11.5 X10'3 (4.5-11.0)
[2024-11-19 06:24] LABS: ALANINE AMINOTRANSFERASE 52 U/L (12-78); ALBUMIN 1.9 G/DL (3.4-5.0); ALKALINE PHOSPHATASE 174 IU/L (46-116); ANION GAP 7 (8-16); BILIRUBIN,TOTAL 20.1 MG/DL (0.1-1.0); BLOOD UREA NITROGEN 25 MG/DL (7-18); CALCIUM 7.8 MG/DL (8.5-10.1); CHLORIDE 102 MMOL/L (99-107); MAGNESIUM 1.3 MG/DL (1.5-2.4); SODIUM 136 MMOL/L (135-145); TOTAL CARBON DIOXIDE 26.6 MMOL/L (24-32)
[2024-11-19 06:32] LABS: ASPARTATE AMINO TRANSFERASE 96 U/L (10-37); BUN/CREATININE RATIO 18.9 (10.0-20.0); CREATININE 1.32 MG/DL (0.60-1.10); GLUCOSE 112 MG/DL (70-104); POTASSIUM 3.3 MMOL/L (3.5-5.1); eCRCL 86 ML/MIN; eGFR 62 ML/MIN
[2024-11-19 06:56] LABS: ALBUMIN/GLOBULIN RATIO 0.8 (1.1-1.5); TOTAL PROTEIN 4.3 G/DL (6.4-8.2)
[2024-11-19] MEDS ORDERED: pantoprazole 40mg Tablet.DR PO SCH (07:30)
[2024-11-19] MEDS ORDERED: LIDOcaine 2% Viscous 15ml cup ONE (08:42)
[2024-11-19] MEDS ORDERED: MIDAZolam 1 MG/ML 5ML VIAL ONE (08:58)
[2024-11-19] MEDS ORDERED: fentaNYL/PF 50MCG/1 ML 2ML syringe ONE (08:58)
[2024-11-19] MEDS ORDERED: simethicone 40mg/0.6ml oral drops 30ml ONE (09:03)
[2024-11-19] MEDS: FLUoxetine 10mg capsule PO SCH (11:08)
[2024-11-19] MEDS: folic acid 1mg tablet PO SCH (11:08)
[2024-11-19] MEDS: spironolactone 50 MG tablet PO SCH (11:09)
[2024-11-19] MEDS: prednisone 10mg tablet PO SCH (11:18)
[2024-11-19] MEDS: multivitamins, therapeutics tablet PO SCH (11:18)
[2024-11-19] MEDS: potassium Cl 20 mEq SR tablet PO PRN (13:29)
[2024-11-19] MEDS: magnesium sulf-water 2g/50mL 50 ML IV PRN (15:12)
[2024-11-19] MEDS: pantoprazole 40mg Tablet.DR PO SCH (20:05)
[2024-11-20] VITALS (12 sets, daily range): BP systolic 101–152; BP diastolic 51–93; PULSE 69–85; RESP 16–18; TEMP 97.6–98.6; O2SAT 95–98
[2024-11-20 05:09] LABS: EOSINOPHILS # (AUTO) 0.1 X10'3 (0-0.9); HEMOGLOBIN 7.3 g/dl (14.0-17.9); LYMPHOCYTES # (AUTO) 1.1 X10'3 (1.1-4.8); MONOCYTES # (AUTO) 0.9 X10'3 (0-0.9); MONOCYTES % (AUTO) 7.5 % (2-12)
[2024-11-20 05:11] LABS: BASOPHILS % (AUTO) 0.2 % (0-1); EOSINOPHILS % (AUTO) 0.5 % (0-6); LYMPHOCYTES % (AUTO) 9.4 % (21-51); MEAN CORPUSCULAR HEMOGLOBIN 32.7 PG (27.0-31.0); MEAN CORPUSCULAR HGB CONC 34.5 g/dL (33.0-36.5); MEAN PLATELET VOLUME 9.4 FL (7.4-10.4); NEUTROPHILS # (AUTO) 9.6 X10'3 (1.8-7.7); NEUTROPHILS % (AUTO) 82.4 % (42-75); PLATELET COUNT 69 X10'3 (140-440); RED BLOOD COUNT 2.23 X10'6 (4.70-6.10); RED CELL DISTRIBUTION WIDTH 18.3 % (11.5-14.5); WHITE BLOOD COUNT 11.7 X10'3 (4.5-11.0)
[2024-11-20 05:20] LABS: HEMATOCRIT 21.2 % (42.0-52.0)
[2024-11-20 05:35] LABS: ALANINE AMINOTRANSFERASE 44 U/L (12-78); ALBUMIN 1.7 G/DL (3.4-5.0); ALKALINE PHOSPHATASE 172 IU/L (46-116); ANION GAP 6 (8-16); BILIRUBIN,TOTAL 16.8 MG/DL (0.1-1.0); BLOOD UREA NITROGEN 22 MG/DL (7-18); BUN/CREATININE RATIO 18.3 (10.0-20.0); CALCIUM 7.7 MG/DL (8.5-10.1); CHLORIDE 106 MMOL/L (99-107); MAGNESIUM 1.6 MG/DL (1.5-2.4); SODIUM 139 MMOL/L (135-145); TOTAL CARBON DIOXIDE 26.6 MMOL/L (24-32); eCRCL 94 ML/MIN; eGFR 69 ML/MIN
[2024-11-20 05:49] LABS: ALBUMIN/GLOBULIN RATIO 0.8 (1.1-1.5); ASPARTATE AMINO TRANSFERASE 68 U/L (10-37); GLUCOSE 118 MG/DL (70-104); TOTAL PROTEIN 3.9 G/DL (6.4-8.2)
[2024-11-20] MEDS: lactulose 20gm/30ml cup PO SCH (08:00)
[2024-11-20] MEDS: LORazepam 0.5 MG tablet PO PRN (15:13)
[2024-11-20 19:57] LABS: HEMATOCRIT 24.1 % (42.0-52.0); HEMOGLOBIN 8.2 g/dl (14.0-17.9); MEAN CORPUSCULAR HEMOGLOBIN 32.9 PG (27.0-31.0); MEAN CORPUSCULAR HGB CONC 34.2 g/dL (33.0-36.5); MEAN CORPUSCULAR VOLUME 96.3 FL (78-98); MEAN PLATELET VOLUME 9.6 FL (7.4-10.4); PLATELET COUNT 73 X10'3 (140-440); RED CELL DISTRIBUTION WIDTH 17.7 % (11.5-14.5); WHITE BLOOD COUNT 13.9 X10'3 (4.5-11.0)
[2024-11-21 06:00] VITALS: BP 106/64; PULSE 67; RESP 17; TEMP 98.7; O2SAT 96
[2024-11-21 06:05] LABS: BASOPHILS % (AUTO) 0.3 % (0-1); EOSINOPHILS # (AUTO) 0.2 X10'3 (0-0.9); EOSINOPHILS % (AUTO) 1.4 % (0-6); HEMATOCRIT 25.6 % (42.0-52.0); HEMOGLOBIN 8.7 g/dl (14.0-17.9); LYMPHOCYTES # (AUTO) 1.6 X10'3 (1.1-4.8); LYMPHOCYTES % (AUTO) 9.5 % (21-51); MEAN CORPUSCULAR HEMOGLOBIN 32.8 PG (27.0-31.0); MEAN CORPUSCULAR HGB CONC 33.9 g/dL (33.0-36.5); MEAN CORPUSCULAR VOLUME 96.9 FL (78-98); MEAN PLATELET VOLUME 9.7 FL (7.4-10.4); MONOCYTES # (AUTO) 1.6 X10'3 (0-0.9); MONOCYTES % (AUTO) 9.9 % (2-12); NEUTROPHILS # (AUTO) 12.9 X10'3 (1.8-7.7); NEUTROPHILS % (AUTO) 78.9 % (42-75); PLATELET COUNT 84 X10'3 (140-440); RED BLOOD COUNT 2.64 X10'6 (4.70-6.10); RED CELL DISTRIBUTION WIDTH 17.4 % (11.5-14.5); WHITE BLOOD COUNT 16.3 X10'3 (4.5-11.0)
[2024-11-21 06:10] LABS: ALANINE AMINOTRANSFERASE 36 U/L (12-78); ALBUMIN 1.8 G/DL (3.4-5.0); ALKALINE PHOSPHATASE 196 IU/L (46-116); ANION GAP 9 (8-16); BILIRUBIN,TOTAL 15.8 MG/DL (0.1-1.0); BLOOD UREA NITROGEN 25 MG/DL (7-18); CALCIUM 7.8 MG/DL (8.5-10.1); CHLORIDE 102 MMOL/L (99-107); MAGNESIUM 1.4 MG/DL (1.5-2.4); POTASSIUM 3.6 MMOL/L (3.5-5.1); SODIUM 135 MMOL/L (135-145); TOTAL CARBON DIOXIDE 23.9 MMOL/L (24-32)
[2024-11-21 06:14] LABS: ALBUMIN/GLOBULIN RATIO 0.7 (1.1-1.5); ASPARTATE AMINO TRANSFERASE 54 U/L (10-37); BUN/CREATININE RATIO 19.1 (10.0-20.0); CREATININE 1.31 MG/DL (0.60-1.10); GLUCOSE 90 MG/DL (70-104); TOTAL PROTEIN 4.3 G/DL (6.4-8.2); eCRCL 86 ML/MIN; eGFR 62 ML/MIN
[2024-11-21 08:35] VITALS: RESP 18; O2SAT 96
[2024-11-21 10:00] VITALS: BP 118/59; PULSE 87; RESP 16; TEMP 98.7; O2SAT 96
[2024-11-21] MEDS ORDERED: AMOX-580 PO (10:09)
== END 2024-11-21 11:05 | disposition home or self-care (01) | DRG 393 ==
LOC: ER 08:56 → ED HOLD 15:46 → UNDOADMIN 15:46 → ED HOLD 15:58 → SUR 3N 11-18 07:02 → ED HOLD 11-18 07:02
PROVIDERS: ADMIT Family Medicine; ATTEND Family Medicine
PROC: 30233N1 Transfusion of Nonautologous Red Blood Cells into Peripheral Vein, Percutaneous Approach (ICD-10-PCS; 2024-11-18)
PROC: 0DJD8ZZ Inspection of Lower Intestinal Tract, Via Natural or Artificial Opening Endoscopic (ICD-10-PCS; principal; 2024-11-19)
PROC: 0DJ08ZZ Inspection of Upper Intestinal Tract, Via Natural or Artificial Opening Endoscopic (ICD-10-PCS; 2024-11-19)
DX: K64.4 Residual hemorrhoidal skin tags (principal); E43 Unspecified severe protein-calorie malnutrition; K65.2 Spontaneous bacterial peritonitis; D68.9 Coagulation defect, unspecified; K76.6 Portal hypertension; I85.10 Secondary esophageal varices without bleeding; K64.8 Other hemorrhoids; D72.829 Elevated white blood cell count, unspecified; K72.10 Chronic hepatic failure without coma; K31.89 Other diseases of stomach and duodenum; K70.10 Alcoholic hepatitis without ascites; K57.30 Diverticulosis of large intestine without perforation or abscess without bleeding; F32.A Depression, unspecified; F17.290 Nicotine dependence, other tobacco product, uncomplicated; F10.20 Alcohol dependence, uncomplicated; F41.9 Anxiety disorder, unspecified; J44.9 Chronic obstructive pulmonary disease, unspecified; K74.60 Unspecified cirrhosis of liver; Z88.2 Allergy status to sulfonamides; Z79.899 Other long term (current) drug therapy; Z68.37 Body mass index [BMI] 37.0-37.9, adult
CPT/HCPCS: 36415; 36430; 43235; 45378; 80053; 81001; 82140; 83690; 83735; 85008; 85025; 85027; 85610; 86885; 86900; 86901; 86920; 87081; 97116; 97161; 97530; 99152; 99153; 99285; A4620; A6258; A6446; G0378; J0696; J1940; J2250; J2354; J2470; J2543; J3010; J7030; J7040; J7512; P9016

== ENCOUNTER 2024-12-12 11:40 | Inpatient (IN) | payer BC ==
[2024-12-12] VITALS (15 sets, daily range): BP systolic 73–122; BP diastolic 28–65; PULSE 71–83; RESP 13–18; TEMP 96.8–98.3; O2SAT 95
[~2024-12-12] VITALS: Ht 152.4 cm; Wt 120.7 kg
[~2024-12-12 11:40] MED LIST changes: +AMOX-580 PO; +FLUO-331 PO; -PHYT5TAB30 PO; -PRED10TA PO; -SERT-432 PO; -thiamine tablet PO
[2024-12-12 12:36] LABS: BASOPHILS # (AUTO) 0.1 X10'3 (0-0.2); BASOPHILS % (AUTO) 0.4 % (0-1); EOSINOPHILS # (AUTO) 0.6 X10'3 (0-0.9); EOSINOPHILS % (AUTO) 2.7 % (0-6); LYMPHOCYTES # (AUTO) 3.7 X10'3 (1.1-4.8); LYMPHOCYTES % (AUTO) 16.3 % (21-51); MEAN CORPUSCULAR HEMOGLOBIN 33.4 PG (27.0-31.0); MEAN CORPUSCULAR HGB CONC 33.1 g/dL (33.0-36.5); MEAN CORPUSCULAR VOLUME 101.1 FL (78-98); MEAN PLATELET VOLUME 10.3 FL (7.4-10.4); MONOCYTES # (AUTO) 2.6 X10'3 (0-0.9); MONOCYTES % (AUTO) 11.5 % (2-12); NEUTROPHILS # (AUTO) 15.6 X10'3 (1.8-7.7); NEUTROPHILS % (AUTO) 69.1 % (42-75); PLATELET COUNT 164 X10'3 (140-440); RED BLOOD COUNT 1.73 X10'6 (4.70-6.10); RED CELL DISTRIBUTION WIDTH 18.8 % (11.5-14.5); WHITE BLOOD COUNT 22.5 X10'3 (4.5-11.0)
[2024-12-12 12:44] LABS: HEMATOCRIT 17.5 % (42.0-52.0); HEMOGLOBIN 5.8 g/dl (14.0-17.9)
[2024-12-12 12:56] LABS: ALANINE AMINOTRANSFERASE 20 U/L (12-78); ALBUMIN 2.8 G/DL (3.4-5.0); ALKALINE PHOSPHATASE 190 IU/L (46-116); ANION GAP 13 (8-16); BILIRUBIN,TOTAL 14.6 MG/DL (0.1-1.0); BLOOD UREA NITROGEN 38 MG/DL (7-18); BUN/CREATININE RATIO 15.5 (10.0-20.0); CALCIUM 8.1 MG/DL (8.5-10.1); CHLORIDE 103 MMOL/L (99-107); CREATININE 2.45 MG/DL (0.60-1.10); SODIUM 136 MMOL/L (135-145); TOTAL CARBON DIOXIDE 19.9 MMOL/L (24-32); eCRCL 30 ML/MIN; eGFR 30 ML/MIN
[2024-12-12] MEDS ORDERED: pantoprazole 40mg IV 80 MG in normal saline 100ml IV soln 100 ML IV ONE ×2 (13:00→19:45)
[2024-12-12 13:06] LABS: NUCLEATED RED BLOOD CELLS 1 /100WBC (0-0); TOTAL CELLS COUNTED 100
[2024-12-12 13:07] LABS: ANISOCYTOSIS 2+; PLATELET ESTIMATE NORMAL
[2024-12-12 13:08] LABS: ACANTHOCYTES 1+; BURR CELLS FEW; HYPOCHROMASIA 1+; SCHISTOCYTES FEW
[2024-12-12 13:14] LABS: ALBUMIN/GLOBULIN RATIO 1.2 (1.1-1.5); ASPARTATE AMINO TRANSFERASE 34 U/L (10-37); GLUCOSE 108 MG/DL (70-104); POTASSIUM 4.5 MMOL/L (3.5-5.1); TOTAL PROTEIN 5.2 G/DL (6.4-8.2)
[2024-12-12] MEDS: pantoprazole 40 MG vial IV ONE (13:23)
[2024-12-12] MEDS: pantoprazole 40MG/NS 100ML BAG 100 ML IV SCH (13:34)
[2024-12-12] MEDS: normal saline 1000ML IV soln IVB ONE (13:58)
[2024-12-12] MEDS: octreotide 100mcg/1 ml ampule IV ONE (14:00)
[2024-12-12] MEDS: octreotide inj. 500 MCG in normal saline 100ml IV soln 97.5 ML IV SCH (14:16)
[2024-12-12 14:56] LABS: APTT 42 SECONDS (22-32)
[2024-12-12] MEDS: morphine 4 MG/ML inj SYRINge IV ONE ×2 (15:50→16:09)
[2024-12-12] MEDS: CefTRIAXone/D5W-Rocephin 1gm 50 ML IV ONE (16:09)
[2024-12-12] MEDS: ondansetron/PF 4mg/2ml inj IV ONE (16:09)
[2024-12-12 16:50] LABS: BASOPHILS % (AUTO) 0.5 % (0-1); EOSINOPHILS # (AUTO) 0.2 X10'3 (0-0.9); EOSINOPHILS % (AUTO) 2.2 % (0-6); LYMPHOCYTES # (AUTO) 1.6 X10'3 (1.1-4.8); LYMPHOCYTES % (AUTO) 16.1 % (21-51); MEAN CORPUSCULAR HEMOGLOBIN 34.5 PG (27.0-31.0); MEAN CORPUSCULAR HGB CONC 34.4 g/dL (33.0-36.5); MEAN CORPUSCULAR VOLUME 100.2 FL (78-98); MEAN PLATELET VOLUME 10.4 FL (7.4-10.4); MONOCYTES # (AUTO) 1.1 X10'3 (0-0.9); MONOCYTES % (AUTO) 10.4 % (2-12); NEUTROPHILS # (AUTO) 7.2 X10'3 (1.8-7.7); NEUTROPHILS % (AUTO) 70.8 % (42-75); PLATELET COUNT 83 X10'3 (140-440); RED BLOOD COUNT 1.41 X10'6 (4.70-6.10); RED CELL DISTRIBUTION WIDTH 18.5 % (11.5-14.5); WHITE BLOOD COUNT 10.1 X10'3 (4.5-11.0)
[2024-12-12 17:02] LABS: HEMATOCRIT 14.1 % (42.0-52.0); HEMOGLOBIN 4.9 g/dl (14.0-17.9)
[2024-12-12] MEDS: glycopyrrolate 0.2mg/ml inj IV ONE (17:36)
[2024-12-12] MEDS: NORepinephrine 8mg/ 250ml NS 250 ML IV SCH (18:18)
[2024-12-12 18:30] LABS: FIBRINOGEN 50 MG/DL (177-424)
[2024-12-12] MEDS: phytonadione inj. 10 MG in normal saline 100ml IV soln 100 ML IV ONE (18:58)
[2024-12-12] MEDS: calcium chloride 100 MG/1 ML inj IV ONE (19:10)
[2024-12-12] MEDS ORDERED: normal saline 1000ml 1,000 ML IV PRN (19:15)
[2024-12-12] MEDS ORDERED: acetaminophen 325mg tablet PO PRN ×2 (19:15)
[2024-12-12] MEDS ORDERED: magnesium hydroxide 30ml (MOM) UD suspension PO PRN (19:15)
[2024-12-12] MEDS ORDERED: ondansetron/PF 4mg/2ml inj IV PRN (19:15)
[2024-12-12] MEDS: LidoCAINE 2% Topical Jelly 11mL syringe (UROJET) TOP ONE (19:38)
[2024-12-12] MEDS ORDERED: octreotide 100mcg/1 ml ampule IV ONE (19:45)
[2024-12-12] MEDS ORDERED: octreotide inj. 500 MCG in normal saline 100ml IV soln 97.5 ML IV SCH (19:45)
[2024-12-12] MEDS: normal saline 1000ml 1,000 ML IV SCH (19:53)
[2024-12-12 20:01] LABS: BILIRUBIN,URINE MODERATE (Neg); COLOR,URINE YELLOW (Yellow); GLUCOSE, URINE NEGATIVE (Neg); KETONES,URINE NEGATIVE (Neg); LEUKOCYTE ESTERASE ,URINE NEGATIVE (Neg); NITRITES, URINE NEGATIVE (Neg); OCCULT BLOOD,URINE NEGATIVE (Neg); PROTEIN,URINE NEGATIVE (Neg)
[2024-12-12 20:28] LABS: OXYGEN SATURATION (MIXED VEN) 78.5 % (60-80); PO2 MIXED VENOUS (TEMP COR) 41.8 mmHg (35-46)
[2024-12-12 20:33] LABS: CLARITY,URINE CLEAR (Clear); UA COLLECTION TYPE FOLEY CATH
[2024-12-12] MEDS ORDERED: pantoprazole 40MG/NS 100ML BAG 100 ML IV SCH (21:00)
[2024-12-12 22:03] LABS: HEMATOCRIT 26.3 % (42.0-52.0); HEMOGLOBIN 9.1 g/dl (14.0-17.9); MEAN CORPUSCULAR HEMOGLOBIN 31.7 PG (27.0-31.0); MEAN CORPUSCULAR HGB CONC 34.5 g/dL (33.0-36.5); MEAN CORPUSCULAR VOLUME 92.1 FL (78-98); MEAN PLATELET VOLUME 9.5 FL (7.4-10.4); PLATELET COUNT 93 X10'3 (140-440); RED BLOOD COUNT 2.86 X10'6 (4.70-6.10); RED CELL DISTRIBUTION WIDTH 18.7 % (11.5-14.5); WHITE BLOOD COUNT 13.1 X10'3 (4.5-11.0)
[2024-12-12 22:15] LABS: APTT 37 SECONDS (22-32); D-DIMER 6.69 MG/L FEU (0-0.50); INR 1.9 INR; PROTHROMBIN TIME 18.9 SECONDS (9.0-12.0)
[2024-12-12 22:18] LABS: PLATELET COUNT 90 X10'3 (140-440)
[2024-12-12 22:56] LABS: FIBRINOGEN 80 MG/DL (177-424)
[2024-12-13] VITALS (23 sets, daily range): BP systolic 99–120; BP diastolic 45–59; PULSE 64–79; RESP 12–20; TEMP 96.7–97.4; O2SAT 92–98
[2024-12-13 02:40] LABS: BASOPHILS # (AUTO) 0.1 X10'3 (0-0.2); BASOPHILS % (AUTO) 0.5 % (0-1); EOSINOPHILS # (AUTO) 0.6 X10'3 (0-0.9); EOSINOPHILS % (AUTO) 3.6 % (0-6); HEMATOCRIT 26.5 % (42.0-52.0); HEMOGLOBIN 9.1 g/dl (14.0-17.9); LYMPHOCYTES % (AUTO) 12.9 % (21-51); MEAN CORPUSCULAR HEMOGLOBIN 31.5 PG (27.0-31.0); MEAN CORPUSCULAR HGB CONC 34.3 g/dL (33.0-36.5); MEAN CORPUSCULAR VOLUME 91.7 FL (78-98); MEAN PLATELET VOLUME 9.3 FL (7.4-10.4); MONOCYTES # (AUTO) 1.9 X10'3 (0-0.9); MONOCYTES % (AUTO) 12.3 % (2-12); NEUTROPHILS # (AUTO) 11.1 X10'3 (1.8-7.7); NEUTROPHILS % (AUTO) 70.7 % (42-75); PLATELET COUNT 109 X10'3 (140-440); RED BLOOD COUNT 2.89 X10'6 (4.70-6.10); RED CELL DISTRIBUTION WIDTH 18.9 % (11.5-14.5); WHITE BLOOD COUNT 15.8 X10'3 (4.5-11.0)
[2024-12-13 02:49] LABS: APTT 35 SECONDS (22-32); INR 1.8 INR; PROTHROMBIN TIME 18.1 SECONDS (9.0-12.0)
[2024-12-13 02:53] LABS: ALANINE AMINOTRANSFERASE 20 U/L (12-78); ALBUMIN 2.8 G/DL (3.4-5.0); ALKALINE PHOSPHATASE 154 IU/L (46-116); ANION GAP 10 (8-16); BILIRUBIN,TOTAL 15.7 MG/DL (0.1-1.0); BLOOD UREA NITROGEN 36 MG/DL (7-18); BUN/CREATININE RATIO 17.3 (10.0-20.0); CALCIUM 8.6 MG/DL (8.5-10.1); CHLORIDE 106 MMOL/L (99-107); CREATININE 2.08 MG/DL (0.60-1.10); SODIUM 138 MMOL/L (135-145); TOTAL CARBON DIOXIDE 21.7 MMOL/L (24-32); eCRCL 35 ML/MIN; eGFR 37 ML/MIN
[2024-12-13 02:59] LABS: ALBUMIN/GLOBULIN RATIO 1.2 (1.1-1.5); ASPARTATE AMINO TRANSFERASE 33 U/L (10-37); GLUCOSE 114 MG/DL (70-104); POTASSIUM 4.6 MMOL/L (3.5-5.1); TOTAL PROTEIN 5.2 G/DL (6.4-8.2)
[2024-12-13] MEDS: morphine 4 MG/ML inj SYRINge IV PRN (08:02)
[2024-12-13 08:29] LABS: HEMATOCRIT 26.4 % (42.0-52.0); MEAN CORPUSCULAR HEMOGLOBIN 31.3 PG (27.0-31.0); MEAN CORPUSCULAR HGB CONC 34.2 g/dL (33.0-36.5); MEAN CORPUSCULAR VOLUME 91.6 FL (78-98); PLATELET COUNT 100 X10'3 (140-440); RED BLOOD COUNT 2.88 X10'6 (4.70-6.10); RED CELL DISTRIBUTION WIDTH 19.4 % (11.5-14.5); WHITE BLOOD COUNT 13.2 X10'3 (4.5-11.0)
[2024-12-13] MEDS ORDERED: LACT-373 PO (09:32)
[2024-12-13] MEDS ORDERED: PROP10TA10 PO (09:32)
[2024-12-13] MEDS ORDERED: RIFA550T PO (09:32)
[2024-12-13] MEDS ORDERED: MULT-1085 PO (09:32)
[2024-12-13] MEDS ORDERED: URSO300C2 PO (09:32)
[2024-12-13] MEDS ORDERED: PANT-47 PO (09:32)
[2024-12-13] MEDS ORDERED: FOLI1TAB27 PO (09:32)
[2024-12-13] MEDS ORDERED: FURO-149 PO (09:32)
[2024-12-13] MEDS ORDERED: MIDO5TAB4 PO (09:32)
[2024-12-13] MEDS ORDERED: FLUO-103 PO (09:32)
[2024-12-13] MEDS ORDERED: SPIR50TA5 PO (09:32)
[2024-12-13] MEDS: CefTRIAXone/D5W-Rocephin 1gm 50 ML IV SCH (10:07)
[2024-12-13] MEDS ORDERED: MIDAZolam 1 MG/ML 5ML VIAL ONE (11:36)
[2024-12-13] MEDS ORDERED: diphenhydrAMINE 50 mg/ml inj ONE (11:36)
[2024-12-13] MEDS ORDERED: fentaNYL/PF 50MCG/1 ML 2ML syringe ONE (11:36)
[2024-12-13] MEDS ORDERED: epiNEPHrine 0.1mg/ml 10ml syringe ONE (11:37)
[2024-12-13] MEDS ORDERED: simethicone 40mg/0.6ml oral drops 30ml ONE (13:04)
[2024-12-13 16:17] LABS: HEMATOCRIT 26.4 % (42.0-52.0); HEMOGLOBIN 9.3 g/dl (14.0-17.9); MEAN CORPUSCULAR HEMOGLOBIN 32.3 PG (27.0-31.0); MEAN CORPUSCULAR HGB CONC 35.2 g/dL (33.0-36.5); MEAN CORPUSCULAR VOLUME 91.9 FL (78-98); MEAN PLATELET VOLUME 8.8 FL (7.4-10.4); PLATELET COUNT 88 X10'3 (140-440); RED BLOOD COUNT 2.87 X10'6 (4.70-6.10); RED CELL DISTRIBUTION WIDTH 19.6 % (11.5-14.5); WHITE BLOOD COUNT 10.9 X10'3 (4.5-11.0)
[2024-12-13 23:49] LABS: HEMATOCRIT 25.2 % (42.0-52.0); HEMOGLOBIN 8.8 g/dl (14.0-17.9); MEAN CORPUSCULAR VOLUME 91.5 FL (78-98); MEAN PLATELET VOLUME 8.8 FL (7.4-10.4); PLATELET COUNT 76 X10'3 (140-440); RED BLOOD COUNT 2.76 X10'6 (4.70-6.10); RED CELL DISTRIBUTION WIDTH 19.7 % (11.5-14.5); WHITE BLOOD COUNT 9.1 X10'3 (4.5-11.0)
[2024-12-14] VITALS (8 sets, daily range): BP systolic 98–130; BP diastolic 42–67; PULSE 70–95; RESP 12–22; TEMP 97.1–98; O2SAT 95–100
[2024-12-14 05:06] LABS: HEMATOCRIT 25.2 % (42.0-52.0); HEMOGLOBIN 8.6 g/dl (14.0-17.9); MEAN CORPUSCULAR HEMOGLOBIN 31.6 PG (27.0-31.0); MEAN PLATELET VOLUME 8.9 FL (7.4-10.4); PLATELET COUNT 78 X10'3 (140-440); RED BLOOD COUNT 2.71 X10'6 (4.70-6.10); RED CELL DISTRIBUTION WIDTH 19.7 % (11.5-14.5)
[2024-12-14 05:21] LABS: APTT 39 SECONDS (22-32); INR 2.2 INR
[2024-12-14 05:22] LABS: ALANINE AMINOTRANSFERASE 15 U/L (12-78); ALBUMIN 2.3 G/DL (3.4-5.0); ALKALINE PHOSPHATASE 135 IU/L (46-116); ANION GAP 6 (8-16); BILIRUBIN,TOTAL 16.2 MG/DL (0.1-1.0); BLOOD UREA NITROGEN 32 MG/DL (7-18); CALCIUM 8.1 MG/DL (8.5-10.1); CHLORIDE 111 MMOL/L (99-107); POTASSIUM 4.6 MMOL/L (3.5-5.1); SODIUM 138 MMOL/L (135-145); TOTAL CARBON DIOXIDE 21.1 MMOL/L (24-32)
[2024-12-14 05:25] LABS: ASPARTATE AMINO TRANSFERASE 41 U/L (10-37); BUN/CREATININE RATIO 20.9 (10.0-20.0); CREATININE 1.53 MG/DL (0.60-1.10); GLUCOSE 117 MG/DL (70-104); PROTHROMBIN TIME 21.5 SECONDS (9.0-12.0); TOTAL PROTEIN 4.6 G/DL (6.4-8.2); eCRCL 48 ML/MIN; eGFR 52 ML/MIN
[2024-12-14 08:36] LABS: BASOPHILS % (AUTO) 0.3 % (0-1); EOSINOPHILS # (AUTO) 0.2 X10'3 (0-0.9); EOSINOPHILS % (AUTO) 2.8 % (0-6); HEMATOCRIT 24.6 % (42.0-52.0); HEMOGLOBIN 8.4 g/dl (14.0-17.9); LYMPHOCYTES # (AUTO) 1.1 X10'3 (1.1-4.8); LYMPHOCYTES % (AUTO) 14.4 % (21-51); MEAN CORPUSCULAR HGB CONC 34.1 g/dL (33.0-36.5); MEAN CORPUSCULAR VOLUME 93.9 FL (78-98); MEAN PLATELET VOLUME 9.1 FL (7.4-10.4); MONOCYTES # (AUTO) 0.7 X10'3 (0-0.9); MONOCYTES % (AUTO) 8.7 % (2-12); NEUTROPHILS # (AUTO) 5.9 X10'3 (1.8-7.7); NEUTROPHILS % (AUTO) 73.8 % (42-75); PLATELET COUNT 72 X10'3 (140-440); RED BLOOD COUNT 2.63 X10'6 (4.70-6.10); RED CELL DISTRIBUTION WIDTH 19.8 % (11.5-14.5)
[2024-12-14] MEDS: phytonadione inj. 5 MG in normal saline 100ml IV soln 100 ML IV ONE ×2 (10:40→21:50)
[2024-12-14] MEDS: morphine 2 MG/ML inj. syringe IV PRN (12:41)
[2024-12-14] MEDS: midodrine 5mg tablet PO SCH (12:41)
[2024-12-14 16:14] LABS: HEMOGLOBIN 7.9 g/dl (14.0-17.9); MEAN CORPUSCULAR HGB CONC 34.6 g/dL (33.0-36.5)
[2024-12-14 16:15] LABS: HEMATOCRIT 22.9 % (42.0-52.0); MEAN CORPUSCULAR HEMOGLOBIN 32.2 PG (27.0-31.0); MEAN CORPUSCULAR VOLUME 92.8 FL (78-98); MEAN PLATELET VOLUME 9.4 FL (7.4-10.4); PLATELET COUNT 74 X10'3 (140-440); RED BLOOD COUNT 2.46 X10'6 (4.70-6.10); RED CELL DISTRIBUTION WIDTH 19.6 % (11.5-14.5); WHITE BLOOD COUNT 7.4 X10'3 (4.5-11.0)
[2024-12-14 18:43] LABS: HEMATOCRIT 23.4 % (42.0-52.0); HEMOGLOBIN 7.9 g/dl (14.0-17.9); MEAN CORPUSCULAR HEMOGLOBIN 31.5 PG (27.0-31.0); MEAN CORPUSCULAR HGB CONC 33.6 g/dL (33.0-36.5); MEAN CORPUSCULAR VOLUME 93.8 FL (78-98); MEAN PLATELET VOLUME 8.8 FL (7.4-10.4); PLATELET COUNT 73 X10'3 (140-440); RED CELL DISTRIBUTION WIDTH 19.8 % (11.5-14.5); WHITE BLOOD COUNT 7.5 X10'3 (4.5-11.0)
[2024-12-14 18:51] LABS: APTT 46 SECONDS (22-32); INR 2.4 INR
[2024-12-14 18:53] LABS: PROTHROMBIN TIME 23.9 SECONDS (9.0-12.0)
[2024-12-14] MEDS: propranolol 10mg tablet PO SCH (20:00)
[2024-12-14] MEDS: Ursodiol 300mg capsule PO SCH (21:56)
[2024-12-15] VITALS (8 sets, daily range): BP systolic 111–116; BP diastolic 53–66; PULSE 63–78; RESP 12–23; TEMP 97.8–98.3; O2SAT 95–98
[2024-12-15 02:04] LABS: BASOPHILS % (AUTO) 0.5 % (0-1); EOSINOPHILS # (AUTO) 0.3 X10'3 (0-0.9); EOSINOPHILS % (AUTO) 4.4 % (0-6); HEMATOCRIT 23.1 % (42.0-52.0); HEMOGLOBIN 7.9 g/dl (14.0-17.9); LYMPHOCYTES # (AUTO) 1.2 X10'3 (1.1-4.8); LYMPHOCYTES % (AUTO) 18.5 % (21-51); MEAN CORPUSCULAR HEMOGLOBIN 32.2 PG (27.0-31.0); MEAN CORPUSCULAR HGB CONC 34.4 g/dL (33.0-36.5); MEAN CORPUSCULAR VOLUME 93.6 FL (78-98); MEAN PLATELET VOLUME 8.7 FL (7.4-10.4); MONOCYTES # (AUTO) 0.7 X10'3 (0-0.9); MONOCYTES % (AUTO) 11.7 % (2-12); NEUTROPHILS # (AUTO) 4.1 X10'3 (1.8-7.7); NEUTROPHILS % (AUTO) 64.9 % (42-75); PLATELET COUNT 71 X10'3 (140-440); RED BLOOD COUNT 2.47 X10'6 (4.70-6.10); RED CELL DISTRIBUTION WIDTH 19.9 % (11.5-14.5); WHITE BLOOD COUNT 6.3 X10'3 (4.5-11.0)
[2024-12-15 02:11] LABS: ALANINE AMINOTRANSFERASE 19 U/L (12-78); ALBUMIN 2.2 G/DL (3.4-5.0); ALKALINE PHOSPHATASE 119 IU/L (46-116); ANION GAP 5 (8-16); BILIRUBIN,TOTAL 16.2 MG/DL (0.1-1.0); BLOOD UREA NITROGEN 24 MG/DL (7-18); CALCIUM 8.1 MG/DL (8.5-10.1); CHLORIDE 111 MMOL/L (99-107); CREATININE 1.26 MG/DL (0.60-1.10); POTASSIUM 4.5 MMOL/L (3.5-5.1); SODIUM 140 MMOL/L (135-145); TOTAL CARBON DIOXIDE 23.6 MMOL/L (24-32); eCRCL 58 ML/MIN; eGFR 65 ML/MIN
[2024-12-15 02:15] LABS: ASPARTATE AMINO TRANSFERASE 39 U/L (10-37); GLUCOSE 101 MG/DL (70-104); TOTAL PROTEIN 4.4 G/DL (6.4-8.2)
[2024-12-15] MEDS ORDERED: pantoprazole 40mg Tablet.DR PO SCH (08:00)
[2024-12-15] MEDS: folic acid 1mg tablet PO SCH (09:23)
[2024-12-15] MEDS: multivitamins, therapeutics tablet PO SCH (09:24)
[2024-12-15] MEDS: spironolactone 50 MG tablet PO SCH (09:25)
[2024-12-15] MEDS: FLUoxetine 10mg capsule PO SCH (09:25)
[2024-12-15] MEDS: phytonadione 10 MG/1 ML amp PO SCH (09:26)
[2024-12-15 11:19] LABS: APTT 45 SECONDS (22-32); INR 2.5 INR
[2024-12-15 11:38] LABS: PROTHROMBIN TIME 23.1 SECONDS (9.0-12.0)
[2024-12-15 17:48] LABS: PLATELET COUNT 70 X10'3 (140-440); WHITE BLOOD COUNT 6.1 X10'3 (4.5-11.0)
[2024-12-15 17:49] LABS: HEMATOCRIT 23.2 % (42.0-52.0); HEMOGLOBIN 7.9 g/dl (14.0-17.9); MEAN CORPUSCULAR HEMOGLOBIN 32.3 PG (27.0-31.0); MEAN CORPUSCULAR HGB CONC 34.2 g/dL (33.0-36.5); MEAN CORPUSCULAR VOLUME 94.4 FL (78-98); MEAN PLATELET VOLUME 8.7 FL (7.4-10.4); RED BLOOD COUNT 2.46 X10'6 (4.70-6.10); RED CELL DISTRIBUTION WIDTH 19.7 % (11.5-14.5)
[2024-12-16] VITALS (10 sets, daily range): BP systolic 102–120; BP diastolic 52–72; PULSE 70–78; RESP 12–18; TEMP 97.5–98.6; O2SAT 95–98
[2024-12-16 00:02] LABS: RED BLOOD COUNT 2.47 X10'6 (4.70-6.10)
[2024-12-16 00:03] LABS: HEMATOCRIT 23.3 % (42.0-52.0); MEAN CORPUSCULAR HEMOGLOBIN 32.3 PG (27.0-31.0); MEAN CORPUSCULAR HGB CONC 34.2 g/dL (33.0-36.5); MEAN CORPUSCULAR VOLUME 94.5 FL (78-98); MEAN PLATELET VOLUME 8.5 FL (7.4-10.4); PLATELET COUNT 73 X10'3 (140-440); RED CELL DISTRIBUTION WIDTH 19.5 % (11.5-14.5); WHITE BLOOD COUNT 6.6 X10'3 (4.5-11.0)
[2024-12-16 04:24] LABS: BASOPHILS % (AUTO) 0.5 % (0-1); EOSINOPHILS # (AUTO) 0.3 X10'3 (0-0.9); EOSINOPHILS % (AUTO) 3.7 % (0-6); HEMATOCRIT 23.4 % (42.0-52.0); LYMPHOCYTES # (AUTO) 0.9 X10'3 (1.1-4.8); MEAN CORPUSCULAR HEMOGLOBIN 32.3 PG (27.0-31.0); MEAN CORPUSCULAR HGB CONC 34.3 g/dL (33.0-36.5); MEAN CORPUSCULAR VOLUME 94.2 FL (78-98); MEAN PLATELET VOLUME 8.6 FL (7.4-10.4); MONOCYTES # (AUTO) 0.8 X10'3 (0-0.9); MONOCYTES % (AUTO) 11.2 % (2-12); NEUTROPHILS # (AUTO) 5.1 X10'3 (1.8-7.7); NEUTROPHILS % (AUTO) 71.6 % (42-75); PLATELET COUNT 77 X10'3 (140-440); RED BLOOD COUNT 2.48 X10'6 (4.70-6.10); RED CELL DISTRIBUTION WIDTH 19.4 % (11.5-14.5); WHITE BLOOD COUNT 7.1 X10'3 (4.5-11.0)
[2024-12-16 04:38] LABS: APTT 44 SECONDS (22-32); INR 2.4 INR; PROTHROMBIN TIME 23.2 SECONDS (9.0-12.0)
[2024-12-16 04:42] LABS: ALANINE AMINOTRANSFERASE 15 U/L (12-78); ALKALINE PHOSPHATASE 119 IU/L (46-116); ANION GAP 8 (8-16); BLOOD UREA NITROGEN 21 MG/DL (7-18); CALCIUM 7.9 MG/DL (8.5-10.1); CHLORIDE 112 MMOL/L (99-107); POTASSIUM 4.5 MMOL/L (3.5-5.1); SODIUM 141 MMOL/L (135-145); TOTAL CARBON DIOXIDE 20.6 MMOL/L (24-32)
[2024-12-16 04:43] LABS: ALBUMIN/GLOBULIN RATIO 0.8 (1.1-1.5); ASPARTATE AMINO TRANSFERASE 36 U/L (10-37); BUN/CREATININE RATIO 20.2 (10.0-20.0); CREATININE 1.04 MG/DL (0.60-1.10); GLUCOSE 106 MG/DL (70-104); TOTAL PROTEIN 4.4 G/DL (6.4-8.2); eCRCL 70 ML/MIN; eGFR 81 ML/MIN
[2024-12-16 19:23] LABS: BASOPHILS % (AUTO) 0.4 % (0-1); EOSINOPHILS # (AUTO) 0.3 X10'3 (0-0.9); EOSINOPHILS % (AUTO) 3.6 % (0-6); HEMATOCRIT 24.3 % (42.0-52.0); HEMOGLOBIN 8.4 g/dl (14.0-17.9); LYMPHOCYTES # (AUTO) 1.2 X10'3 (1.1-4.8); LYMPHOCYTES % (AUTO) 13.9 % (21-51); MEAN CORPUSCULAR HEMOGLOBIN 32.5 PG (27.0-31.0); MEAN CORPUSCULAR HGB CONC 34.3 g/dL (33.0-36.5); MEAN CORPUSCULAR VOLUME 94.5 FL (78-98); MEAN PLATELET VOLUME 8.7 FL (7.4-10.4); MONOCYTES # (AUTO) 1.2 X10'3 (0-0.9); MONOCYTES % (AUTO) 13.2 % (2-12); NEUTROPHILS # (AUTO) 6.1 X10'3 (1.8-7.7); NEUTROPHILS % (AUTO) 68.9 % (42-75); PLATELET COUNT 86 X10'3 (140-440); RED BLOOD COUNT 2.57 X10'6 (4.70-6.10); WHITE BLOOD COUNT 8.9 X10'3 (4.5-11.0)
[2024-12-16] MEDS: lactulose 20gm/30ml cup PO SCH (19:25)
[2024-12-16] MEDS: rifaximin 550mg tablet PO SCH (19:26)
[2024-12-17 02:00] VITALS: BP 113/60; PULSE 76; RESP 15; TEMP 97.5; O2SAT 97
[2024-12-17 02:19] LABS: BASOPHILS % (AUTO) 0.5 % (0-1); EOSINOPHILS # (AUTO) 0.3 X10'3 (0-0.9); EOSINOPHILS % (AUTO) 3.6 % (0-6); HEMATOCRIT 24.7 % (42.0-52.0); HEMOGLOBIN 8.6 g/dl (14.0-17.9); LYMPHOCYTES # (AUTO) 1.1 X10'3 (1.1-4.8); LYMPHOCYTES % (AUTO) 12.8 % (21-51); MEAN CORPUSCULAR HGB CONC 34.6 g/dL (33.0-36.5); MEAN CORPUSCULAR VOLUME 95.1 FL (78-98); MEAN PLATELET VOLUME 8.3 FL (7.4-10.4); MONOCYTES % (AUTO) 11.8 % (2-12); NEUTROPHILS % (AUTO) 71.3 % (42-75); PLATELET COUNT 79 X10'3 (140-440); RED CELL DISTRIBUTION WIDTH 20.5 % (11.5-14.5); WHITE BLOOD COUNT 8.4 X10'3 (4.5-11.0)
[2024-12-17 02:36] LABS: INR 2.4 INR; PROTHROMBIN TIME 23.5 SECONDS (9.0-12.0)
[2024-12-17 02:38] LABS: APTT 41 SECONDS (22-32)
[2024-12-17 02:42] LABS: ALANINE AMINOTRANSFERASE 17 U/L (12-78); ALBUMIN 2.3 G/DL (3.4-5.0); ALKALINE PHOSPHATASE 166 IU/L (46-116); ANION GAP 6 (8-16); BILIRUBIN,TOTAL 15.5 MG/DL (0.1-1.0); BLOOD UREA NITROGEN 19 MG/DL (7-18); BUN/CREATININE RATIO 18.8 (10.0-20.0); CALCIUM 7.9 MG/DL (8.5-10.1); CHLORIDE 112 MMOL/L (99-107); CREATININE 1.01 MG/DL (0.60-1.10); SODIUM 141 MMOL/L (135-145); TOTAL CARBON DIOXIDE 22.6 MMOL/L (24-32); eCRCL 72 ML/MIN; eGFR 84 ML/MIN
[2024-12-17 02:45] LABS: ASPARTATE AMINO TRANSFERASE 42 U/L (10-37); GLUCOSE 103 MG/DL (70-104); POTASSIUM 4.3 MMOL/L (3.5-5.1); TOTAL PROTEIN 4.7 G/DL (6.4-8.2)
[2024-12-17 06:00] VITALS: BP 124/62; PULSE 73; RESP 10; TEMP 98.1; O2SAT 95
[2024-12-17 08:00] VITALS: RESP 12; O2SAT 97
[2024-12-17 11:00] VITALS: BP 123/67; PULSE 77; RESP 10; TEMP 96.7; O2SAT 96
[2024-12-17] MEDS ORDERED: CEFD300C3 PO (11:25)
[2024-12-17] MEDS ORDERED: MIDO5TAB4 PO (11:25)
[2024-12-17] MEDS ORDERED: FURO-149 PO (11:25)
[2024-12-17] MEDS: LidoCAINE 2% Topical Jelly 11mL syringe (UROJET) TOP ONE (14:45)
[2024-12-17] MEDS ORDERED: POTA-192 PO (15:07)
== END 2024-12-17 16:49 | disposition home health service (06) | DRG 432 ==
LOC: ER 11:41 → ED HOLD 19:28 → EDBEDREQTM 20:29 → CICU 2S 21:10 → PCU 3S 12-13 20:10
PROVIDERS: ADMIT Internal Medicine Critical Care Medicine; ATTEND Internal Medicine Critical Care Medicine
PROC: 02HV33Z Insertion of Infusion Device into Superior Vena Cava, Percutaneous Approach (ICD-10-PCS; principal; 2024-12-12)
PROC: B548ZZA Ultrasonography of Superior Vena Cava, Guidance (ICD-10-PCS; 2024-12-12)
PROC: 30233K1 Transfusion of Nonautologous Frozen Plasma into Peripheral Vein, Percutaneous Approach (ICD-10-PCS; 2024-12-12)
PROC: 30233N1 Transfusion of Nonautologous Red Blood Cells into Peripheral Vein, Percutaneous Approach (ICD-10-PCS; 2024-12-12)
PROC: 30233R1 Transfusion of Nonautologous Platelets into Peripheral Vein, Percutaneous Approach (ICD-10-PCS; 2024-12-12)
PROC: 0DB78ZX Excision of Stomach, Pylorus, Via Natural or Artificial Opening Endoscopic, Diagnostic (ICD-10-PCS; 2024-12-13)
PROC: 0W9B3ZZ Drainage of Left Pleural Cavity, Percutaneous Approach (ICD-10-PCS; 2024-12-16)
DX: K70.31 Alcoholic cirrhosis of liver with ascites (principal); G93.41 Metabolic encephalopathy; R57.1 Hypovolemic shock; I85.11 Secondary esophageal varices with bleeding; K29.21 Alcoholic gastritis with bleeding; J15.69 Pneumonia due to other Gram-negative bacteria; J15.9 Unspecified bacterial pneumonia; E87.20 Acidosis, unspecified; Z68.43 Body mass index [BMI] 50.0-59.9, adult; K76.6 Portal hypertension; E72.20 Disorder of urea cycle metabolism, unspecified; D68.9 Coagulation defect, unspecified; J90 Pleural effusion, not elsewhere classified; K64.8 Other hemorrhoids; E88.09 Other disorders of plasma-protein metabolism, not elsewhere classified; E66.01 Morbid (severe) obesity due to excess calories; I10 Essential (primary) hypertension; K31.89 Other diseases of stomach and duodenum; D69.6 Thrombocytopenia, unspecified; R58 Hemorrhage, not elsewhere classified; K64.4 Residual hemorrhoidal skin tags; K70.40 Alcoholic hepatic failure without coma; D50.0 Iron deficiency anemia secondary to blood loss (chronic); Z88.2 Allergy status to sulfonamides; Z79.899 Other long term (current) drug therapy
CPT/HCPCS: 32555; 36415; 36430; 43239; 71045; 71250; 74176; 76604; 80053; 81003; 82140; 82810; 82948; 83605; 84145; 85007; 85025; 85027; 85379; 85384; 85610; 85730; 86885; 86900; 86901; 86920; 87081; 93005; 97161; 97530; 99152; 99291; 99292; A4615; A6209; A6212; A6213; A6250; A6258; A6449; C1751; C1758; G0378; J0171; J0696; J1200; J2250; J2270; J2354; J2405; J2470; J3010; J3430; J3490; J7030; J7040; J7050; J7120; P9016; P9035; P9059

== ENCOUNTER 2025-01-23 07:04 | Inpatient (IN) | payer BC ==
[2025-01-23] VITALS (10 sets, daily range): BP systolic 74–181; BP diastolic 19–143; PULSE 108–118; RESP 32–33; TEMP 98.5; O2SAT 83–98
[~2025-01-23] VITALS: Ht 182.9 cm; Wt 113.6 kg
[~2025-01-23 07:04] MED LIST changes: -AMOX-580 PO; +CEFD300C3 PO; +FLUO-103 PO; -FLUO-331 PO; +FURO-149 PO; -FURO40TA4 PO; -LACT-237 PO; +LACT-373 PO; -LACT10SO78 PO; -MIDO2.5T PO; +MIDO5TAB4 PO; +MULT-1085 PO; -MULT-25 PO; +PANT-47 PO; -PANT40TA54 PO; -RIFA550T PO
[2025-01-23 07:50] LABS: EOSINOPHILS # (AUTO) 0.1 X10'3 (0-0.9); HEMOGLOBIN 12.3 g/dl (14.0-17.9); LYMPHOCYTES # (AUTO) 0.7 X10'3 (1.1-4.8); MEAN PLATELET VOLUME 9.3 FL (7.4-10.4); MONOCYTES % (AUTO) 0.4 % (2-12)
[2025-01-23 07:51] LABS: BASOPHILS % (AUTO) 0.1 % (0-1); EOSINOPHILS % (AUTO) 0.6 % (0-6); HEMATOCRIT 36.6 % (42.0-52.0); LYMPHOCYTES % (AUTO) 5.9 % (21-51); MEAN CORPUSCULAR HEMOGLOBIN 34.1 PG (27.0-31.0); MEAN CORPUSCULAR HGB CONC 33.7 g/dL (33.0-36.5); MEAN CORPUSCULAR VOLUME 101.2 FL (78-98); NEUTROPHILS # (AUTO) 10.4 X10'3 (1.8-7.7); PLATELET COUNT 159 X10'3 (140-440); RED BLOOD COUNT 3.62 X10'6 (4.70-6.10); RED CELL DISTRIBUTION WIDTH 16.1 % (11.5-14.5); WHITE BLOOD COUNT 11.2 X10'3 (4.5-11.0)
[2025-01-23 08:06] LABS: ALANINE AMINOTRANSFERASE 21 U/L (12-78); ALBUMIN 2.1 G/DL (3.4-5.0); ALBUMIN/GLOBULIN RATIO 0.6 (1.1-1.5); ALKALINE PHOSPHATASE 181 IU/L (46-116); ANION GAP 17 (8-16); APTT 50 SECONDS (22-32); ASPARTATE AMINO TRANSFERASE 63 U/L (10-37); BILIRUBIN,TOTAL 13.2 MG/DL (0.1-1.0); BLOOD UREA NITROGEN 20 MG/DL (7-18); BUN/CREATININE RATIO 10.9 (10.0-20.0); CALCIUM 8.3 MG/DL (8.5-10.1); CHLORIDE 107 MMOL/L (99-107); CREATININE 1.83 MG/DL (0.60-1.10); INR 2.8 INR; LIPASE 49 U/L (16-77); POTASSIUM 3.6 MMOL/L (3.5-5.1); PROTHROMBIN TIME 25.8 SECONDS (9.0-12.0); SODIUM 137 MMOL/L (135-145); TOTAL PROTEIN 5.5 G/DL (6.4-8.2); eCRCL 62 ML/MIN; eGFR 42 ML/MIN
[2025-01-23 08:08] LABS: GLUCOSE 48 MG/DL (70-104)
[2025-01-23 08:09] LABS: TOTAL CARBON DIOXIDE 13.2 MMOL/L (24-32)
[2025-01-23] MEDS: dextrose 50%-water 50ml dispensing syringe IV ONE ×2 (08:18→09:08)
[2025-01-23] MEDS: ondansetron/PF 4mg/2ml inj IV ONE (08:27)
[2025-01-23 08:44] LABS: BILIRUBIN,URINE LARGE (Neg); CLARITY,URINE SLIGHTLY CLOUDY (Clear); COLOR,URINE YELLOW (Yellow); GLUCOSE, URINE 100 mg/dl (Neg); KETONES,URINE NEGATIVE (Neg); LEUKOCYTE ESTERASE ,URINE NEGATIVE (Neg); OCCULT BLOOD,URINE SMALL (Neg); PROTEIN,URINE TRACE mg/dl (Neg)
[2025-01-23 08:51] LABS: ANISOCYTOSIS 1+; BURR CELLS 2+; LARGE PLATELETS MODERATE; PLATELET ESTIMATE NORMAL; TOTAL CELLS COUNTED 100
[2025-01-23 08:52] LABS: ACANTHOCYTES FEW
[2025-01-23 08:57] LABS: UA COLLECTION TYPE FOLEY CATH
[2025-01-23 08:59] LABS: NITRITES, URINE NEGATIVE (Neg)
[2025-01-23 09:23] LABS: BACTERIA,URINE 1+ /HPF (Neg); MUCUS STRANDS MODERATE /LPF (Neg); RBC,URINE 0-2 /HPF (0-2); SQUAMOUS EPITHELIAL CELL,UR MODERATE /LPF (FEW); WBC,URINE 0-4 /HPF (0-4)
[2025-01-23 09:24] LABS: AMORPHOUS URATES 2+
--- NOTE | 2025-01-23 09:30 | ELECTROCARDIOGRAPH REPORT ---
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 Pee Howe Measurements Intervals [place] Rate: 124 P: 47 SD: 139 QRS: 19 QRSD: 92 T: 14 QT: 334 QTc: 480 Interpretive Statements Sinus tachycardia Low voltage, precordial leads Borderline prolonged QT interval Electronically Signed On 01-23-2025 9:43:[address] Pee Howe Please click the below link to view image of tracing.
[2025-01-23] MEDS: magnesium sulf-water 2g/50mL 50 ML IV ONE (09:32)
--- NOTE | 2025-01-23 09:48 | Physician Documentation ---
History of Present Illness Chief Complaint: Abdominal Pain w/vomiting Stated Complaint: LIVER FAILURE Time Seen by MD: 07:14 OK to notify your PCP?: Yes Primary Medical Doctor: RAINER CHAMPAGNE MD Source: patient, RN/, RN notes reviewed, old records Mode of Arrival: POV, Dropped Off Exam Limitations: no limitations HPI 34 year old male with history of liver failure presents to the emergency department for complaints of abdominal pain that one day ago at 1800. He state states that he began feeling ill, complaining of right sided abdominal pain and had experienced some vomiting. Patient is additionally complaining of shortness of breath. 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 Patient denies any other associated symptoms at this time. Patient denies any other alleviating or exacerbating factors. Medication Reconciliation Allergies: Coded Allergies: Sulfa (Sulfonamide Antibiotics) (Verified Allergy, Unknown, 12/12/24) morphine (Verified Allergy, Unknown, 01/23/25) rash Scheduled Cefdinir (Cefdinir), 1 CAP PO Q12H Fluoxetine Hcl (Fluoxetine Hcl), 1 CAP PO DAILY, (Reported) Folic Acid* (Folic Acid*), 1 TAB PO DAILY, (Reported) Furosemide (Lasix), 1 TAB PO BID Lactulose (Lactulose), 15 ML PO BID, (Reported) Multivitamin (Multi Vitamin Daily), 1 TAB PO DAILY, (Reported) Pantoprazole Sodium (PROTONIX tablet), 1 TAB PO DAILY, (Reported) Propranolol Hcl* (Inderal*), 1 TAB PO Q12H, (Reported) Spironolactone (Spironolactone), 1 TAB PO DAILY, (Reported) Ursodiol (Ursodiol), 1 CAP PO Q12H, (Reported) Scheduled PRN Midodrine HCl (Midodrine HCl), 1 TAB PO TID PRN for hypotension Discontinued Medications Potassium Chloride (Klor-Con), 1 TAB PO DAILY Discontinued Reason: Auto Discontinued Past Medical History Past Medical History: GI Bleed, Hemorrhoids, Anemia, Liver Disease Past Surgical History: no surgical history Patient History: FH: COPD (chronic obstructive pulmonary disease) MOTHER FH: throat cancer Maternal grandmother FHx: congestive heart failure MOTHER Alcohol Use: Heavy Drug Use: marijuana Lives with: Other Lives In: Home Occupation: employed Review of Systems All Other Systems at this time: Reviewed and Negative ROS As stated above in the HPI, otherwise all systems are reviewed and negative. Physical Exam Vital Signs: RN Vital Signs have been reviewed: Yes, Temperature: 98.9, Source: Temporal, Heart Rate: 119, Respiratory Rate: 30, BP: 125/55, Pulse Oximetry: 98, Weight: 113.640 Oxygen Flow Rate: 0 Pulse Oximetry Reflects: adequate oxygenation Physical Exam General: The patient is ill appearing but well developed, well nourished, nontoxic appearing and is in no acute distress. Skin: Jaundiced, warm and dry with no rashes. HEENT: Head was normocephalic and atraumatic. Eyes - pupils equal, round, reactive to light and accommodation. Extraocular movements were intact. Conjunctivae were nonicteric. Ears - bilateral tympanic membranes were normal. The mouth and oropharynx were clear with moist mucous membranes. There were no pharyngeal exudates or erythema. Neck: Supple and nontender. There was no jugular venous distention, lymphadenopathy, thyromegaly or masses. Chest: Tachypnea, Clear to auscultation bilaterally without wheezes, rales or rhonchi. No accessory muscle use. No dullness to percussion. Heart: Rapid heart rate. S1, S2. No murmurs. Palpation of the chest wall was normal. No rubs or thrills. Abdomen: Distended abdomen. Positive bowel sounds. No guarding or rebound. No hepatosplenomegaly or palpable masses. Extremities: Pitting edema 2+ from the hips down. The patient moves all extremities. Pulses were equal and symmetric. Neurologic: Cranial nerves II-XII were intact. Sensation was intact to light touch throughout. Motor strength was 5/5 in all four extremities. Deep tendon reflexes were intact in both upper and lower extremities. Psychologic: The patient was oriented to person, place and time. The patient demonstrated appropriate judgement and insight. Progress Progress Note 1005: The case was discussed with the intensivest Jose R Lundberg at this time who was informed on the patients case and made aware of the plan for the patient. He agreed to evaluate the patient. 1010 : A message was left with Dr. Keller the IR physician informing them on the patient. Results/Orders Reviewed/noted all lab results: Yes Results/Orders Orders - NEO PITTMAN MD Chest,Single View (01/23/25 08:29) Electrocardiogram (01/23/25 09:05) Ct Abdomen Pelvis (01/23/25 09:05) Magnesium Sulf-Water 2g/50ml (Magnesium (01/23/25 09:05) Completed Orders - NEO PITTMAN MD Cbc/Diff (01/23/25 07:10) Lipase (01/23/25 07:10) CMP (01/23/25 07:10) Ammonia (01/23/25 07:10) MG (01/23/25 07:15) Pt Inr (01/23/25 07:15) PTT (01/23/25 07:15) Type And Screen (01/23/25 07:15) Dextrose 50%-Water (Dextrose 50%-Water S (01/23/25 08:10) Ondansetron Inj. (Zofran 4mg/2ml Vial) (01/23/25 08:25) Chest,Single View (01/23/25 08:29) Man Diff (01/23/25 07:38) Dextrose 50%-Water (Dextrose 50%-Water S (01/23/25 08:50) Electrocardiogram (01/23/25 09:05) Ct Abdomen Pelvis (01/23/25 09:05) Ua W/Microscopic, Cult If Ind (01/23/25 08:21) Medications Received in ER Medications (Trade) Dose Ordered Sig/Yaz Route PRN Reason Start Time Stop Time Status Last Admin Dose Admin (dextrose 50%-water syringe) 50 ml ONCE ONCE IV 01/23/25 08:10 01/23/25 08:13 DC 01/23/25 08:18 50 ML (Zofran 4mg/2ml vial) 4 mg ONCE ONCE IV 01/23/25 08:25 01/23/25 08:26 DC 01/23/25 08:27 4 MG (dextrose 50%-water syringe) 50 ml ONCE ONCE IV 01/23/25 08:50 01/23/25 08:51 DC 01/23/25 09:08 50 ML Magnesium Sulfate 50 ml @ 25 mls/hr ONCE ONCE IV 01/23/25 09:05 01/23/25 11:04 01/23/25 09:32 25 MLS/HR Vital Signs 01/23/25 01/23/25 01/23/25 01/23/25 07:08 07:28 07:28 08:29 Temp 98.9 Pulse 121 114 119 Resp 22 21 16 30 B/P (MAP) 112/63 126/71 (89) 125/55 (78) Pulse Ox 97 96 98 O2 Flow Rate 0 0 Laboratory Tests Test 01/23/25 07:38 01/23/25 08:21 01/23/25 08:44 White Blood Count 11.2 H Red Blood Count 3.62 L Hemoglobin 12.3 L Hematocrit 36.6 L Mean Corpuscular Volume 101.2 H Mean Corpuscular Hemoglobin 34.1 H Mean Corpuscular Hemoglobin Concent 33.7 Red Cell Distribution Width 16.1 H Platelet Count 159 Mean Platelet Volume 9.3 Neutrophils (%) (Auto) 93.0 H Lymphocytes (%) (Auto) 5.9 L Monocytes (%) (Auto) 0.4 L Eosinophils (%) (Auto) 0.6 Basophils (%) (Auto) 0.1 Neutrophils # (Auto) 10.4 H Lymphocytes # (Auto) 0.7 L Monocytes # (Auto) 0.0 Eosinophils # (Auto) 0.1 Basophils # (Auto) 0.0 CBC Comment Differential Total Cells Counted 100 Neutrophils % (Manual) 47.0 Band Neutrophils % 45.0 H Lymphocytes % (Manual) 3.0 L Monocytes % (Manual) 2.0 Metamyelocytes % 3.0 H Platelet Estimate Normal Large Platelets Moderate Red Blood Cell Morphology Perf Basophilic Stippling Anisocytosis 1+ Macrocytosis 1+ Maskell Cells 2+ Acanthocytes Few Prothrombin Time 25.8 H INR International Normalized Ratio 2.8 Activated Partial Thromboplast Time 50 H Coagulation Comments Sodium Level 137 Potassium Level 3.6 Chloride Level 107 Carbon Dioxide Level 13.2 *L Anion Gap 17 H Blood Urea Nitrogen 20 H Creatinine 1.83 H Estimated GFR/1.73 m2 42 BUN/Creatinine Ratio 10.9 Glucose Level 48 *L Calcium Level 8.3 L Magnesium Level 1.0 *L Total Bilirubin 13.2 H Aspartate Amino Transf (AST/SGOT) 63 H Alanine Aminotransferase (ALT/SGPT) 21 Alkaline Phosphatase 181 H Ammonia 73 H Total Protein 5.5 L Albumin 2.1 L Globulin 3.4 Albumin/Globulin Ratio 0.6 L Lipase 49 Chemistry Comments Urine Specimen Description [place] cath Urine Color Yellow Urine Clarity Slightly cloudy Urine pH 6.0 Urine Specific [place] 1.010 Urine Protein Trace Urine Glucose (UA) 100 H Urine Ketones Negative Urine Occult Blood Small Urine Nitrite Negative Urine Bilirubin Large Urine Urobilinogen 1.0 Urine Leukocyte Esterase Negative Urine RBC 0-2 Urine WBC 0-4 Urine Squamous Epithelial Cells Moderate Urine Amorphous Urates 2+ Urine Bacteria 1+ Urine Mucus Moderate Urine Culture Indicated Not ind Volume Urine Centrifuged 6 ml Urine Comment Low volume Glucometer 79 Re-Evaluation Re-Evaluation : Re-Evaluation: Worsened, Unchanged Progress This patient is critically ill. He is a 34-year-old with end-stage liver diseas e cirrhosis has not seen a business analyst intern. Patient presents with significant jaundice but he has been having abdominal pain with the vomiting. He had some significant pain in the right upper quadrant but also he has significant liver disease. Laboratory work was obtained white count 11.2 with MCV of 101 hemoglobin hematocrit of 12 and 36 platelets 159. Patient was 93 neutrophils and 45 bands which are quite concerning. Chemistry showed some significant electrolyte abnormalities. He has a new worsening creatinine of 1.83 consistent with prerenal dehydration. CO2 is quite acidotic at 13.2. Glucose was low at 48 in his magnesium is 1.0. Patient's calcium was also low at 8.3 bilirubin is elevated at 13.2 with a mild bump in LFTs of AST 63 ALT 21 alk-phos 181. Patient's INR is 2.8. Patient's VBG shows a pH of 7.216. Patient had an ultrasound of the right upper quadrant to rule out any cholecystitis. There was significant ascites throughout his body including a left pleural effusion. Albumin was given because of his hypotension but also in preparation for paracentesis and thoracentesis. However that was ultimately canceled after I discussed the case with the angio suite and interventional radiology in part because the patient was becoming unstable in his hypotensive. Patient then received a small fluid bolus. Later I contacted the ICU who kindly agreed to admit the patient for further workup and care. Patient was transferred to the ICU. Continuous monitoring and evaluation advisor interpretation shows sinus tachycardia, heart rate 120s, abnormal, my interpretation. Pulse oximetry monitor interpretation shows normal oxygenation at 97% room air, normal, my interpretation. Later pulse oximetry dropped to 95 than 92% ultimately was placed on 2 L oxygen at 99%. All abnormal, my interpretation. 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 Neo Pittman Measurements Intervals [place] Rate: 124 P: 47 ND: 139 QRS: 19 QRSD: 92 T: 14 QT: 334 QTc: 480 Interpretive Statements Sinus tachycardia Low voltage, precordial leads Borderline prolonged QT interval Electronically Signed On 01-23-2025 9:43:[address] Neo Pittman Please click the below link to view image of tracing. EKG Date and Time:01/23/25927 Electronically Signed by: NEO PITTMAN MD Date and Time: 01/23/2543 EKG #2: Additional Comment 1112: JASWINDER Pittman interpreted EKG to reveal a rate at 112bpm and Qtc of 451 with poor R wave progression in V1-V3. Chest X-Ray : Additional Comments CLINICAL INFORMATION: 34 years old, Male; Shortness of breath. TECHNIQUE: Single AP portable chest radiograph was obtained. COMPARISON: DI CHEST,SINGLE VIEW on DOS: 12/15/24, DI CHEST,SINGLE VIEW on DOS: 12/12/24, DI CHEST,SINGLE VIEW on DOS: 12/12/24 FINDINGS: Lungs: Low lung volumes. Small left pleural effusion. Patchy airspace opacities in the left mid to lower lung, may be infectious or inflammatory in nature, and/or associated with the pleural effusion. Cardiac: Heart size is within normal limits. Pulmonary vasculature: Mildly prominent pulmonary vasculature. Mediastinum/simone: Unremarkable. Bones: No acute osseous abnormality identified. Other: No other significant findings. IMPRESSION: 1. Small left pleural effusion. 2. Opacities in the left mid to lower lung may be infectious or inflammatory in nature and/or secondary to the pleural effusion. Electronically Signed by:SOURAV MARS DO Date & Time: 01/23/[address] : Impression Exam: CT CT ABDOMEN PELVIS History: ABD PAIN Comparison Study: CT scan of the chest abdomen pelvis performed on 12/14/2024. Technique: Multidetector spiral CT of the abdomen and pelvis was performed from lung bases to pubic symphysis. Imaging was performed without intravenous c ontrast. Coronal and sagittal multiplanar reformats were obtained from the axial data set by the technologist. Radiation Dose : 1. Abdomen/Pelvis: CTDIvol 34.5 mGy, DLP 2177.97 mGy*cm. Findings: Evaluation of vasculature and solid organs is limited due to lack of intravenous contrast use. Lung Bases: Moderate left pleural effusion. Passive atelectasis at the left lung base. Liver: The liver is small and nodular in contour. Gallbladder and Biliary Tree: Gallstones. No intrahepatic or extrahepatic b iliary ductal dilatation. Spleen: Spleen is enlarged measuring 15.0 cm in length. Pancreas: The pancreas is grossly unremarkable. Adrenal Glands: Unremarkable Kidneys: Kidneys are unremarkable without calculi or hydronephrosis. GI tract: The stomach is distended. Mucosal edema in the stomach. There is fluid in the distal esophagus. Diffuse small bowel and colonic wall thickening. No bowel obstruction. Peritoneum/mesentery/retroperitoneum. No evidence of free intraperitoneal air. Large volume ascites. Lymph nodes: No suspicious lymphadenopathy. Abdominal Wall: Diffuse body wall anasarca. Umbilical hernia containing ascites. Vasculature: The visualized abdominal aorta is normal in size and caliber. Evaluation of abdominal and pelvic vessels is limited due to lack of intravenous contrast. Gastric varices and splenic varices noted as well as paraesophageal varices. Urinary Bladder: Grossly unremarkable for degree of distention. Pelvic Organs: Unremarkable Musculoskeletal: No aggressive focal bony lesions, acute fractures or dislocation. IMPRESSION: 1. Large volume ascites. 2. Cirrhosis and portal hypertension. 3. Diffuse body wall anasarca. 4. Gallstones. 5. Diffuse wall thickening of the small and large bowel which may be related to ascites or portal enteropathy / colopathy. 6. Left pleural effusion and passive atelectasis. Electronically Signed by:WINSTON CARLSON MD Date & Time: 01/23/25 0905 Ultrasound : Impression CLINICAL INDICATION: 44 years old, Male; trauma, right thigh knee pain. TECHNIQUE: Noncontrast CT of the right knee was performed. Sagittal and coronal reformatted images are provided. COMPARISON: None CT Dose: CTDI volume is 16.8 mGy. Dose-length product is 587.8 mGy*cm FINDINGS: No fracture or dislocation. No abnormal alignment. Joint spaces are maintained. Mild nonspecific prepatellar soft tissue swelling. IMPRESSION: 1. No acute fracture or dislocation. All CT scans at this medical facility are performed using dose modulation techniques as appropriate to a performed exam including the following: Automated exposure control was utilized; adjustment of the MA and/or KV according to patient size; and use of iterative reconstruction technique. Electronically Signed by:WINSTON CARLSON MD Date & Time: 01/23/25 1051 Dictated by: WINSTON CARLSON MD Dictation date and time: 01/23/25 1003 Medical Decision Making Additional info obtained from: old records Differential Dx:Considerations: Include: AAA, Angina/[place], Aortic dissection, Appendicitis, Bowel obstruction, Cholangitis, Cholelithasis, Constipation, Diverticular disease, Esophageal rupture, Esophagitis, Gastritis/PUD, Gastroenteritis, GI hemorrhage, Hernia, Hepatitis, Inflammatory BD, Ischemic bowel, Pancreatitis, Urinary obstruction, Urinary tract infection, Urolithiasis, Other Departure Time of Disposition: 10:16 Disposition: 09 ADMITTED INPATIENT Admitted to Inpatient Unit: yes, to 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 I provided critical care services, which included medication orders, frequent reevaluations of the patient's condition and response to treatment, ordering and reviewing test results, and discussing the case with various consultants. Excludes time spent performing separately billable procedures. The critical care time associated with the care of the patient was 90 minutes. Signature Scribe Signature: Scribed for Neo Pittman MD by Gill Caldwell . 01/23/25 10:05 Attestation: The note accurately reflects work and decisions made by me.Neo Pittman MD 01/23/25 09:47 NEO PITTMAN MD Jan 23, 2025 09:48 GILL ALBERTO Jan 23, 2025 10:05
[2025-01-23] MEDS: morphine 2 MG/ML inj. syringe IV PRN (10:01)
[2025-01-23] MEDS: albumin (Human) 5% 250ml 250 ML IV ONE (10:02)
[2025-01-23] MEDS ORDERED: piperacillin/tazo 3.375gm/50ml 50 ML IV ONE (10:25)
[2025-01-23] MEDS: normal saline 1000ml 1,000 ML IV SCH (10:42)
--- NOTE | 2025-01-23 10:43 | RADIOLOGY REPORT ---
CLINICAL INFORMATION: 34 years old, Male; Shortness of breath. TECHNIQUE: Single AP portable chest radiograph was obtained. COMPARISON: DI CHEST,SINGLE VIEW on DOS: 12/15/24, DI CHEST,SINGLE VIEW on DOS: 12/12/24, DI CHEST,SING LE VIEW on DOS: 12/12/24 FINDINGS: Lungs: Low lung volumes. Small left pleural effusion. Patchy airspace opacities in the left mid to lo wer lung, may be infectious or inflammatory in nature, and/or associated with the pleural effusion. Cardiac: Heart size is within normal limits. Pulmonary vasculature: Mildly prominent pulmonary vasculature. Mediastinum/simone: Unremarkable. Bones: No acute osseous abnormality identified. Other: No other significant findings. IMPRESSION: 1. Small left pleural effusion. 2. Opacities in the left mid to lower lung may be infectious or inflammatory in nature and/or seconda ry to the pleural effusion.
[2025-01-23] MEDS ORDERED: LidoCAINE 2% Topical Jelly 11mL syringe (UROJET) TOP ONE (10:50)
[2025-01-23] MEDS ORDERED: magnesium sulf-water 4G/100mL 100 ML IV PRN (10:50)
[2025-01-23] MEDS ORDERED: magnesium sulf-water 2g/50mL 50 ML IV PRN (10:50)
[2025-01-23] MEDS ORDERED: potassium Cl 40MEQ/270ML bag 270 ML IV PRN (10:50)
[2025-01-23] MEDS ORDERED: potassium Cl 20 mEq SR tablet PO PRN ×2 (10:50)
[2025-01-23] MEDS ORDERED: magnesium Cl slow-release 64mg tablet PO PRN (10:50)
[2025-01-23] MEDS ORDERED: potassium Cl 40MEQ/1/2NS 520ml 520 ML IV PRN (10:50)
[2025-01-23] MEDS ORDERED: magnesium hydroxide 30ml (MOM) UD suspension PO PRN (10:50)
[2025-01-23] MEDS ORDERED: ondansetron/PF 4mg/2ml inj IV PRN (10:50)
--- NOTE | 2025-01-23 11:24 | RADIOLOGY REPORT ---
INDICATION: Abdominal pain TECHNIQUE: Multiple real-time sonographic images of the abdomen were obtained. COMPARISON: CT scan of the abdomen pelvis performed same date. FINDINGS: The liver is echogenic with a nodular contour. The liver measures 15.8 cm. Portal vein not evaluated difficult to visualized. The gallbladder contains gallstones. Gallbladder measures 0.4 cm in thickness. Negative sonographic m urphy's sign. The common bile duct measures 0.5 cm. The right kidney measures 9.8 cm. No hydronephrosis. The pancreas is not well visualized due to obscuration from bowel gas. The IVC and aorta. Large volume ascites. IMPRESSION: 1. Large volume ascites. 2. Cirrhosis. 3. Gallstones. Negative sonographic Figueredo's sign.
[2025-01-23] MEDS ORDERED: NORepinephrine 8mg/ 250ml NS 250 ML IV PRN (11:50)
[2025-01-23] MEDS: NORepinephrine 8mg/ 250ml NS 250 ML IV ONE (11:51)
--- NOTE | 2025-01-23 12:45 | ELECTROCARDIOGRAPH REPORT ---
[facility] Test Date: 2025-01-23 Test Time: 11:29:41 Pat Name: CARLOS BENITEZ Department: EMERGENCY ROOM Room: 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 Neo Pittman Measurements Intervals [place] Rate: 112 P: 54 DC: 138 QRS: 16 QRSD: 89 T: 7 QT: 330 QTc: 451 Interpretive Statements Sinus tachycardia Electronically Signed On 01-23-2025 14:11:[address] Neo Pittman Please click the below link to view image of tracing.
[2025-01-23] MEDS: sodium bicarbonate (8.4%) 1 mEq/ml syringe ONE (12:55)
[2025-01-23] MEDS ORDERED: NORepinephrine 32 MG in normal saline 250ml IV soln 218 ML IV SCH (13:35)
[2025-01-23] MEDS ORDERED: ringers solution, lacted 1,000 ML IV ONE ×2 (13:55)
[2025-01-23] MEDS: albumin (human) 25% 100 ML IV solution IV ONE (13:55)
[2025-01-23] MEDS: sodium bicarbonate 1meq/ml inj 150 ML in dextrose 5%-water 1,000 ML IV SCH (13:55)
[2025-01-23] MEDS ORDERED: propofol 1000mg/100ml bottle 100 ML IV SCH (14:05)
[2025-01-23] MEDS ORDERED: FENTANYL-0.9 % NACL/PF 100 ML IV SCH (14:05)
[2025-01-23] MEDS ORDERED: epiNEPHrine 0.1mg/ml 10ml syringe ONE (14:31)
--- NOTE | 2025-01-23 14:57 | RADIOLOGY REPORT ---
CHEST RADIOGRAPH Indication: line placement Technique: Single frontal view of the chest was obtained Comparison: DI CHEST,SINGLE VIEW on DOS: 01/23/25, DI CHEST,SINGLE VIEW on DOS: 12/15/24, DI CHEST,SING LE VIEW on DOS: 12/12/24, DI CHEST,SINGLE VIEW on DOS: 12/12/24, DI CHEST,SINGLE VIEW on DOS: 09/27/24 FINDINGS: Lines and Tubes: Right central venous catheter tip in the cavoatrial junction Lungs: Worsening left lung opacities Pleura: No pneumothorax. Enlarging left pleural effusion. Cardiomediastinal contours: Unremarkable Bones: No acute osseous abnormality. IMPRESSION: Enlarging left pleural effusion. Worsening left airspace disease. Right central venous catheter tip in the cavoatrial junction.
[2025-01-23] MEDS ORDERED: rocuronium 10mg/ml inj IV ONE (15:30)
[2025-01-23] MEDS ORDERED: piperacillin/tazo 4.5gm/100ml 100 ML IV SCH (16:00)
[2025-01-23] MEDS ORDERED: lactulose 20gm/30ml cup PO SCH (16:00)
--- NOTE | 2025-01-23 16:21 | HISTORY AND PHYSICAL-Residence ---
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 History is obtained from his fiiancee as the patient is too short of breath. As per fiance, patient has been taking his medications regularly. Denies any recent alcohol intake. He is supposed to see his doctor at [facility] in March. For the past two days he has been complaining of shortness of the breath which is worsening, associated with abdominal pain and abdominal distention, and vomitings Denies any recent hematemesis. Unsure whether patient is having melena or not. Having yellowish discoloration for the past four months, and recently in November 2024 he was admitted for upper GI bleed endoscopy at that time revealed portal hypertensive gastropathy. He was admitted to ICU during the time with need for vasopressors and blood transfusions for severe anemia. Allergies: Coded Allergies: Sulfa (Sulfonamide Antibiotics) (Verified Allergy, Unknown, 12/12/24) morphine (Verified Allergy, Unknown, 01/23/25) rash Home Medications Home Medications Active Cefdinir 300 Mg Capsule 1 Cap PO Q12H 10 Days Lasix (Furosemide) 40 Mg Tablet 1 Tab PO BID 30 Days Midodrine HCl 5 Mg Tablet 1 Tab PO TID PRN 30 Days PRN FOR SBP<100 Reported Multi Vitamin Daily (Multivitamin) 1 Each Tablet 1 Tab PO DAILY 30 Days PROTONIX tablet (Pantoprazole Sodium) 40 Mg Tablet.dr 1 Tab PO DAILY 30 Days Spironolactone 50 Mg Tablet 1 Tab PO DAILY 30 Days Inderal* (Propranolol HCl) 10 Mg Tablet 1 Tab PO Q12H 30 Days Folic Acid* (Folic Acid) Y Tab 1 Tab PO DAILY 30 Days Fluoxetine Hcl (Fluoxetine HCl) 10 Mg Capsule 1 Cap PO DAILY Lactulose 10 Gram/15 Ml Solution 15 Ml PO BID Ursodiol 300 Mg Capsule 1 Cap PO Q12H 30 Days Past Medical History Past Medical History 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 Portal hypertension Esophageal varices with GI bleed status post EVL Hemorrhoids CARMEN/hepatorenal syndrome previously on dialysis Hepatic encephalopathy Past Surgical History Surgical History Comment ACL repair Family History Family History: FH: COPD (chronic obstructive pulmonary disease) MOTHER FH: throat cancer Maternal grandmother FHx: congestive heart failure MOTHER Past Social History Social History Comment History of heavy alcohol in the past, sober for the past September 2024 Nonsmoker denies other illicit drug use Smoking: Non-Smoker Alcohol Use: Heavy Drug Use: Marijuana Lives with: Other Lives In: Home Occupation: employed ROS All Other Systems: Reviewed and Negative ROS ROS Constitutional: Positive for weakness, decreased appetite HEENT: No blurring of the vision, No sore throat, epistaxis, tinnitus Cardiovascular: No chest pain/discomfort, palpitations, syncope. No pedal edema Respiratory: No sob, cough,, hemoptysis Gastrointestinal: Positive for abdominal pain, jaundice,nausea, vomiting. No diarrhea, constipation, melena. Genitourinary: No frquency, urgency, incontinence, nocturia. No dysuria, hematuria Musculoskeletal: No arthralgia, myalgia Endocrine: Positive for fatigue, polydipsia, polyuria. No heat or cold intolerance Neurologic: No headache, vertigo. No weakness, numbness or tingling of extremities Psychiatric: No hallucinations/delusions, no anhedonia, no suicidal ideation\ Hematologic: No bleeding or bruises Reviewed in full. All negative except for pertinent positives in HPI Exam Vitals: Vital Signs Date Time Temp Pulse Resp B/P (MAP) Pulse Ox O2 Delivery O2 Flow Rate FiO2 01/23/25 14:45 123/45 (71) 01/23/25 14:30 84 01/23/25 14:00 Non-Rebreather 15.0 01/23/25 13:00 118 32 01/23/25 09:49 98.5 General: General: Adult male, distress secondary to dyspnea, yellowish discoloration of the skin, sick appearing, drowsy, aaoX3 Head: Normocephalic with an atraumatic Eyes: Pupils- 3mm, reacting to light, conjunctiva- ICTERUS Nose and throat: No polyps, septum- normal, no mucosal ulcers Neck: Supple, no lymphadenopathy, no carotid bruit Respiratory: use of accessory muscles of respiration, decreased breath sounds over the left side of the chest Cardiac: S1-S2 heard, rythm regular, tachycardia no gallop/murmur, pulses thready Abdomen: Distended, mild diffuse tenderness, ascites was not, no organomegaly, bowel sounds- heard Extremities: no clubbing, 1+ pedal edema, no deformities, peripheral pulses- 1+ Skin: warm and dry, no rash, no purpura Neuro: Moving all extremities Diagnostic Data Last Recorded Lab Results: 01/23/25 0738 01/23/25 0738 Diagnostic Data: Laboratory Tests Test 01/23/25 07:38 Prothrombin Time 25.8 SECONDS (9.0-12.0) H INR International Normalized Ratio 2.8 INR Activated Partial Thromboplast Time 50 SECONDS (22-32) H Coagulation Comments Advance Care Planning Advanced Care plannin - 30 Minutes (Status is discussed with him and he opted for full code) Additional Plan 34 year old male with 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 ER course In the ER patient was found to have hypoglycemic and received dextrose bolus. Cultures were sent and he received one dose of IV Zosyn. Received IV albumin in view of hypotension. Also with IV magnesium for magnesium of one. Received one dose of morphine for pain and it caused him some rash Plan Gastrointestinal Cirrhosis- MELD Na- 33 Acute liver failure Ascites -bilirubin of 13.3, AST/ALT/ALP 63/21/181, albumin 2.4 -us abdomen/ CT abdomen gallstones, ascites, cirrhosis -patient is started on IV albumin, lactulose for prevention of hepatic encephalopathy -paracentesis once blood pressure improves ID Sepsis Spontaneous bacterial peritonitis -WBC 11.2 with procalcitonin of 28 -follow up on blood cultures -diagnostic paracentesis for diagnosis of SBP -continue Zosyn 4.5 q.8h Respiratory Left pleural effusion Acute hypoxemic respiratory failure -patient is in acute respiratory distress likely secondary resume the pleural effusion and severe metabolic acidosis -on NRBM @ 15L/min -diagnostic/therapeutic thoracentesis -continue sodabicarb 150 mEq in D5W at 100cc/hr Cardiovascular Shock-likely septic shock -2 L LR bolus followed by IV albumin -started on nor epi patient requiring 0.5 mcg/kg per minute -maintain map above 65 Fluid and electrolytes Severe metabolic acidosis Severe lactic acidosis Hypomagnesemia -severe metabolic acidosis, lactic acidosis secondary to sepsis and liver failure -continue sodium bicarbonate as mentioned -IV Mag sulfate for low magnesium Renal CARMEN -baseline creatinine 1.0 -elevated creatinine likely secondary to dehydration versus sepsis vs HRS -2 L LR bolus followed by IV albumin Heme/onc Macrocytic anemia Coagulopathy secondary to liver disease -INR 2.8, plan for two FFP transfusion -monitor H&H, platelets Endocrine Hypoglycemia -IV D5W as mentioned At around 2:10pm, patients saturation falling even with NRBM, and we proceeded to intubate. During intubation patient had large volume coffee-ground emesis. Patient had difficulty in intubation with edema of the airways, and secretions in the throat. After intubation patient developed bradycardia, and zohreh blue was called. Monitor did not show vfib, received about six cycles of epinephrine, two doses of sodium bicarb, and chest compressions. code was called off at 2:50 pm. Patient's family members were informed of the prognosis during his admission to the ICU, and after the code blue was called, Dr. Odell called his family members and informed them. Carlos Boles MD ICU resident Date of Service: Jan 23, 2025 Billing Provider: ABDIRASHID ODELL MD,CARLOS, RES Jan 23, 2025 16:21
--- NOTE | 2025-01-23 16:50 | PROCEDURE NOTE- Residance ---
Procedure Note Providers to CC CC: ABDIRASHID CASTILLO MD ~ Planned Procedure Right IJ CVC done at around 130pm Indications Hypotension fluid resuscitation Post Operative Dx: Right IJ CVC Type of Anesthesia Lidocaine local Informed Consent Yes Description The patient was placed in a propped up position appropriate for central line placement. The patients right neck was prepped and draped in sterile fashion. 1% Lidocaine was used to anesthetize the surrounding skin area. Internal jugular vein was visualized with ultrasound and needle was introduced under ultrasound guidance and once nonpulsatile blood is aspirated syringes removed, then guidewire is inserted and once the guidewire is in the position with the help of the scalpel we placed leonora to facilitate insertion of dilators. After dilators were removed, a double lumen stefan catheter was introduced into the the internal jugular vein. The catheter was threaded smoothly over the guide wire and appropriate blood return was obtained. Each lumen of the catheter was evacuated of air and flushed with sterile saline. The catheter was then sutured in place to the skin, Biopatch applied, and a sterile dressing with Tegaderm applied. Estimated Blood Loss <10cc Complication none X-Ray Findings right IJ cvc in the aortocaval junction, no pneumothorax Date of Service: Jan 23, 2025 Billing Provider: ABDIRASHID CASTILLO [facility] Jan 23, 2025 16:50
--- NOTE | 2025-01-23 17:14 | Death Certificate - Resident ---
Certificate Worksheet Date of Date of : Jan 23, 2025 Cause of / Time Intervals Cause of IMMEDIATE CAUSE (Final Disease or *Time Between Onset and condition resulting in ) [Hours (H), Days (D),Week's (W),Month's (M),Year's (Y)] A) Cardiac arrest *Time: mins B) Aspiration/ large coffee-ground emesis *Time: mins C) severe metabolic acidosis, *Time: Hours D) acute liver failure *Time: Days E) cirrhosis *Time: Months License Number [id number] Physicians Mailing Address Hospitalist Mailing Address: [address] [place] [address], [id number] CHELLY BOLES, RES Jan 23, 2025 17:14
--- NOTE | 2025-01-23 17:26 | DISCHARGE SUMMARY-Residence ---
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), history of GI Bleed status post EVL, history of CARMEN dialysis dependent, has been off the dialysis for the past few months, presented to the ER with chief complaints of abdominal pain, vomitings, and shortness of breath for the past 2 day Admission Diagnosis: Acute liver failure Hospital Course DATE OF ADMISSION: 01/23/2025 DATE OF : 01/23/2025 Discharge Diagnosis\Comment: Cirrhosis- MELD Na- 33 Acute liver failure Ascites Sepsis, spot in his bacterial peritonitis Left pleural effusion Acute hypoxemic respiratory failure Septic shock Severe metabolic acidosis CARMEN Coagulopathy Hypoglycemia Operations\Procedures: Central line and endotracheal intubation Consultants: none Complications: patient Condition on DC: Discharge Summary: 34 year old male with 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 Patient was admitted for acute on chronic liver failure, sepsis, septic shock, spontaneous bacterial peritonitis, respiratory distress, ascites, left pleural effusion, CARMEN, hypoglycemia, severe metabolic acidosis. He was treated with IV albumin, IV fluids, IV Zosyn, IV dextrose, on started on IV sodium bicarbonate and FFP. Initially patient was maintaining saturations on NRBM. Patient became increasingly hypoxemic with increased work of breathing and got intubated. At the time of intubation he had a large coffee ground emesis. After that patient developed bradycardia followed by cardiac arrest. Code blue was called and CPR was done. He received around six doses of IV epinephrine and two doses of IV bicarbonate. Code blue was called off at 2:50 p.m. and patient was pronounced at 2:50 p.m. family members were informed *Problems/Diagnosis: (1) SBP (spontaneous bacterial peritonitis) (2) Liver failure Status: Acute Total Time Spent on D/C: > 30 Minutes Date of Service: Jan 23, 2025 Billing Provider: ABDIRASHID CASTILLO MD, HARIVARSHA, RES Jan 23, 2025 17:12
[2025-01-24] MEDS ORDERED: pantoprazole 40mg Tablet.DR PO SCH (07:30)
[2025-01-24] MEDS ORDERED: K and/or MAG REPLACEMENT MC SCH (08:00)
== END 2025-01-23 17:44 | DRG 871 ==
LOC: ER 07:05 → ED HOLD 10:54 → CICU 2S 11:49
PROVIDERS: ADMIT Internal Medicine Critical Care Medicine; ATTEND Internal Medicine Critical Care Medicine
PROC: 02HV33Z Insertion of Infusion Device into Superior Vena Cava, Percutaneous Approach (ICD-10-PCS; principal; 2025-01-23)
PROC: B548ZZA Ultrasonography of Superior Vena Cava, Guidance (ICD-10-PCS; 2025-01-23)
PROC: 0BH17EZ Insertion of Endotracheal Airway into Trachea, Via Natural or Artificial Opening (ICD-10-PCS; 2025-01-23)
PROC: 5A12012 Performance of Cardiac Output, Single, Manual (ICD-10-PCS; 2025-01-23)
DX: A41.9 Sepsis, unspecified organism (principal); J96.01 Acute respiratory failure with hypoxia; K72.00 Acute and subacute hepatic failure without coma; R65.21 Severe sepsis with septic shock; K65.2 Spontaneous bacterial peritonitis; K76.6 Portal hypertension; N17.9 Acute kidney failure, unspecified; J90 Pleural effusion, not elsewhere classified; I46.9 Cardiac arrest, cause unspecified; J44.9 Chronic obstructive pulmonary disease, unspecified; K70.31 Alcoholic cirrhosis of liver with ascites; E83.42 Hypomagnesemia; K80.20 Calculus of gallbladder without cholecystitis without obstruction; Z88.2 Allergy status to sulfonamides; Z88.5 Allergy status to narcotic agent; Z79.899 Other long term (current) drug therapy
CPT/HCPCS: 36415; 71045; 74176; 76700; 80053; 81001; 82140; 82800; 82948; 83605; 83690; 83735; 84145; 85007; 85025; 85610; 85730; 86885; 86900; 86901; 87040; 87077; 87186; 92950; 93005; 96365; 96367; 96368; 96375; 96376; 99291; 99292; A4314; A4615; A4620; A6449; C1751; G0378; J2270; J2405; J3490; J7030; J7040; J7070; P9045; P9047